=== PATIENT | female | born 1955 | race Caucasian/White ===

== ENCOUNTER 2018-05-30 15:20 | Outpatient (REF) | payer BC, SELFPAY ==
--- NOTE | 2018-05-30 15:00 | PAPFT_PTH ---
PATIENT: Hedy Peterson LOC: [facility] U#:[id number] AGE/SX: 62/F ROOM: RE05/30/[address]: JOHN Baker : 1955 BED: DIS: 05/30/2018 SPEC #: [id number] RECD: 05/30/18 17:55 STATUS: EMEKA REKelly #: [id number] CHALINO: 05/30/18 15:[address]: Brenda Luis DEPT: [facility] Cytology RECD BY: Jazmin Schmitz ENTERED: 05/30/18 17:56 SP TYPE: PAPFT OT DR: Jg Hand MD Tissues: 1 - CX/ENDOCX FOR PAP SMEARS Procedures: PAP THIN PREP/UVM Screening HPV DNA PROBE Comments: [id number]
== END 2018-05-30 15:40 ==
LOC: LBN 15:20
PROVIDERS: PCP Family Medicine; Visit Provider Nurse Practitioner Family
DX: Z12.4 Encounter for screening for malignant neoplasm of cervix (principal); Z11.51 Encounter for screening for human papillomavirus (HPV)
CPT/HCPCS: 88142; 87624

== ENCOUNTER 2018-07-23 02:01 | Outpatient (CLI) | payer BC, SELFPAY ==
--- NOTE | 2018-07-23 11:30 | DI.MAMMO_ITS ---
SYMPTOM/DIAGNOSIS: SCREENING, Z12.31 MAMMOGRAMS: Mammograms were interpreted according to the usual protocol including computer analysis with CAD system, tomosynthesis and C view imaging. Comparison is made with exams from [id number]. The breasts are composed of scattered fibroglandular densities, breast density, Category B. No suspicious masses or suspicious microcalcifications are seen. There has been no significant change. IMPRESSION: Category 1, negative mammogram. Yearly screening mammography is recommended. [facility] ASSESSMENT OF FINDINGS: Negative. Category 1. Patient will receive a letter notifying them of these results. BI-RADS category B. There are scattered areas of fibroglandular density.
== END 2018-07-23 02:21 ==
PROVIDERS: PCP Family Medicine; Visit Provider Nurse Practitioner Family
DX: Z12.31 Encounter for screening mammogram for malignant neoplasm of breast (principal)
CPT/HCPCS: 77063; 77067

== ENCOUNTER 2018-10-14 02:18 | Outpatient (CLI) | payer BC, SELFPAY ==
[2018-10-14 10:02] LABS: HCT 46.8 % (36.0-46.0); HGB 15.7 g/dL (12.0-15.5); Mean Corp. HGB Concentration 33.5 g/dL (32.0-36.0); Mean Corpuscular Hemoglobin 33.4 pg (27.0-33.0); Mean Corpuscular Volume 99.6 fL (80-95); Mean Platelet Volume 9.4 fL (8.0-11.0); Platelet Count 190 x1000/uL (130-400); White Blood Cell Count 4.87 k/cumm (4.4-10.8)
[2018-10-14 10:09] LABS: ALT 30 U/L (12-78); AST 19 U/L (15-37); Albumin 3.7 g/dL (3.4-5.0); Alkaline Phosphatase 79 U/L (46-116); Anion Gap 9.5 mmol/L (3-11); BUN 8 mg/dL (7-18); Bilirubin, Total 0.6 mg/dL (0.2-1.0); CO2 28.5 mmol/L (21.0-32.0); CREATININE 0.64 mg/dL (0.55-1.02); Chloride 107 mmol/L (98-107); Glucose 86 mg/dL (70-100); Potassium 4.1 mmol/L (3.5-5.1); Sodium 145 mmol/L (136-145); Total Protein 6.6 g/dL (6.4-8.2)
== END 2018-10-14 02:38 ==
PROVIDERS: PCP Family Medicine; Visit Provider Family Medicine
DX: I10 Essential (primary) hypertension (principal)
CPT/HCPCS: 36415; 80053; 85027

== ENCOUNTER → 2019-09-05 10:03 | Outpatient (BNVA) | payer MEDICARE, BC, SELFPAY | PROVIDERS: PCP Family Medicine; Referring Provider Family Medicine; Visit Provider Surgery | DX: Z80.0 Family history of malignant neoplasm of digestive organs (principal); Z86.010 Personal history of colon polyps; Z12.11 Encounter for screening for malignant neoplasm of colon ==

== ENCOUNTER 2019-09-19 08:39 | Outpatient (CLI) | payer MEDICARE, BC, SELFPAY ==
[2019-09-20 00:09] LABS: COVID-19 RT-PCR UVMMC Result Negative (Negative)
== END 2019-09-19 08:59 ==
PROVIDERS: PCP Family Medicine; Visit Provider Surgery
DX: Z11.59 Encounter for screening for other viral diseases (principal); Z01.818 Encounter for other preprocedural examination
CPT/HCPCS: U0003

== ENCOUNTER 2019-09-22 07:26 | Day surgery (SDC) | payer MEDICARE, BC, SELFPAY ==
--- NOTE | 2019-09-22 06:06 | W.COLOREPORT ---
Date of service: 09/22/19 Time of Service: 08:46 Colonoscopy Report Date of procedure: 09/22/19 Pre-op diagnosis general: Family history of colon cancer and screening colonoscopy Post-op diagnosis procedure note: same (and polyps, small external hemorrhoid and skin tag) Procedure: Colonoscopy with polypectomy Surgeon: Carlie Galan Anesthesia proc note operative: other (General/ ASA 2/Livia Martines, BREANN ) Estimated blood loss (mL): 5 Pathology: other (Transverse polyp, descending polyp and rectal polyp x3) Complications: None Disposition: same day Indications: Nanci is back to see me today to discuss a screening colonoscopy. Her last colonoscopy was in 2015 and she was found to have a hyperplastic polyp. She also has a family history of colon cancer. She denies any changes in bowel habits, melena, hematochezia, unintentional weight loss or abdominal pain. She continues to have daily bowel movements. She had a knee replacement last year in December and is still slowly getting back to her activity levels. Prep: Miralax/Dulcolax Procedure Start Time: 08:46 Procedure End Time: 09:25 Retraction Time: 31 minutes Findings: 4 small, most likely benign polyps 1 pedunculated polyp, most likely pre-malignant Procedure Description: After informed consent was obtained the patient was taken to the procedure room and placed in a left decubitous position. Monitors were applied and a time out was done. The patients name, date of , procedure, allergies to medications and metal in their body was reviewed. The patient was then sedated. Once sedated and comfortable a rectal exam was done. External exam revealed a skin tag and a small external hemorrhoid. Internal exam revealed a normal sphincter tone and no palpable masses. The scope was then introduced and retro-flexed. No internal hemorrhoids were identified. The scope was then advanced to the cecum without difficulty. The ileocecal valve and appendiceal orifice were identified. The prep was adequate. The scope was then slowly retracted over 31 minutes back into the rectum. Polyps were removed with cold forceps in the transverse colon x1 and the rectum x2. One pedunculated polyp was removed with hot snare in the descending colon. The scope was removed and the patient was woken up and taken back to Same day surgery in stable condition. The patient tolerated the procedure well and there were no immediate complications. Follow up: The patient should follow up in 3-5 years unless they develop changes in bowel habits or other new gastrointestinal complaints.
--- NOTE | 2019-09-22 06:08 | W.PM.DSUDISC ---
Discharge Plan Disposition Patient Disposition: HOME Condition: Good Discharge Details Reason For Visit: Colonoscopy Attending Provider: Carlie Galan Primary Care Provider: Ruddy Merrill Home Meds and New Rx's Prescriptions: Continued atenolol 25 mg tablet 25 mg PO DAILY Qty: 90 RF: 4 paroxetine HCl 20 mg tablet 20 mg PO DAILY Qty: 90 RF: 4 estradiol [Estrace] 0.01 % (0.1 mg/gram) cream 42.5 gm VG AD PRN (Reason: atrophic vaginitis) Qty: 1 RF: 4 budesonide 32 mcg/actuation spray,non-aerosol 2 spray NS PRN RF: 0 Ibuprofen [Motrin Ib] 200 MG tablet 800 mg PO DAILY RF: 0 levothyroxine 75 mcg tablet 75 mcg PO DAILY Qty: 90 RF: 2 atorvastatin 20 mg tablet 20 mg PO DAILY Qty: 90 RF: 4 Discontinued bisacodyl [Dulcolax (bisacodyl)] 5 mg tablet,delayed release (DR/EC) 5 mg PO ONCE Qty: 4 RF: 0 polyethylene glycol 3350 17 gram powder in packet 255 g PO DAILY Qty: 15 RF: 0 Discharge Instructions Instructions: Colorectal Polyps (DC) Additional Instructions: Findings: 4 small most likely benign polyps 1 slightly larger and most likely pre-malignant polyp (all have been removed) Follow up: 3-5 years Please call if you develop: fevers >101.5 Nausea or Vomiting Abdominal pain that is not transient DAY SURGERY UNIT POST ENDOSCOPY INSTRUCTIONS 1. Because there will be medication in your system for the next 24 hours, you may feel a little sleepy. Your coordination will be affected. Therefore: a. Do not drive or operate dangerous equipment for 24 hours. b. Do not drink alcohol beverages for 24 hours (not even beer). c. Plan to go home and rest for the day. 2. Generally there are no restrictions on your activity after a day or so has gone by, but you may feel a bit fatigued for a few days. 3 After you arrive home you may have a light meal and return to a normal diet as you can tolerate it without feeling sick to your stomach. 4. After surgery, you may feel pain or discomfort. This should be only transient, but if it persists please contact your doctor. 5. If there are any questions regarding the findings of your procedure, please feel free to contact your doctor. 6. If you are unable to contact your doctor with a problem, contact the hospital at [phone]. 7. Continue all your regular medications unless directed otherwise. I understand the above instructions and have no questions. Signature of Patient or Responsible Adult Escort Date/Time Name of Responsible Adult Escort Signature of Nurse Date/Time Activity:: Activity as Tolerated Diet:: As Tolerated Discharge Orders Discharge Orders: Discharge Order (Routine); Ordered 09/22/19 Ordered By: Carlie Galan DS: Diagnosis Discharge Diagnosis (1) Colorectal polyps: Status: Acute
[2019-09-22 07:40] VITALS: BP 129/89; PULSE 81; RESP 16; TEMP 36.5; O2SAT 97
[2019-09-22] MEDS: Lactated Ringers 1,000 ML 80 ML IV (08:24)
--- NOTE | 2019-09-22 08:48 | BOWEL_PTH ---
PATIENT: Hedy Peterson LOC: [facility] U#:[id number] AGE/SX: 64/F ROOM: RE09/22/[address]: Carlie Galan MD : 1955 BED: DIS: 09/22/2019 SPEC #: [id number] RECD: 09/22/19 11:13 STATUS: EMEKA REQ #: [id number] CHALINO: 09/22/19 08:[address]: Carlie Galan DEPT: Surgical Specimen RECD BY: Jazmin Schmitz ENTERED: 09/22/19 11:14 SP TYPE: Bowel OTHR DR: Ruddy Merrill MD Tissues: 1 - BIOPSY BOWEL 2 - BIOPSY BOWEL 3 - BIOPSY BOWEL Procedures: GROSS AND MICRO LEVEL 4 Comments: [id number]
[2019-09-22 10:05] VITALS: BP 139/82; PULSE 75; RESP 16; TEMP 36.5; O2SAT 99
== END 2019-09-22 10:35 | disposition home or self-care (01) ==
LOC: SUR 07:26
PROVIDERS: PCP Family Medicine; Visit Provider Surgery
PROC: 0DJD8ZZ Inspection of Lower Intestinal Tract, Via Natural or Artificial Opening Endoscopic (ICD-10-PCS; CPT 45378; principal; 2019-09-22 08:30)
DX: Z12.11 Encounter for screening for malignant neoplasm of colon (principal); Z80.0 Family history of malignant neoplasm of digestive organs; Z87.19 Personal history of other diseases of the digestive system; K64.4 Residual hemorrhoidal skin tags; D12.8 Benign neoplasm of rectum; K63.5 Polyp of colon; K62.1 Rectal polyp; D12.4 Benign neoplasm of descending colon
CPT/HCPCS: 45385; 45380; 88305

== ENCOUNTER 2020-05-07 01:10 | Outpatient (CLI) | payer MEDICARE, BC, SELFPAY ==
[2020-05-07 13:56] LABS: ALT 88 U/L (14-59); AST 88 U/L (15-37); Albumin 3.9 g/dL (3.4-5.0); Alkaline Phosphatase 89 U/L (46-116); Anion Gap 12.8 mmol/L (3-11); BUN 4 mg/dL (7-18); Bilirubin, Total 0.6 mg/dL (0.2-1.0); CO2 28.2 mmol/L (21.0-32.0); CREATININE 0.6 mg/dL (0.55-1.02); Calcium 9.2 mg/dL (8.5-10.1); Calculated LDL 31 mg/dL (<100); Chloride 107 mmol/L (98-107); Cholesterol 159 mg/dL (<200); Glucose 80 mg/dL (74-106); HDL Cholesterol 101 mg/dL (40-60); Potassium 3.8 mmol/L (3.5-5.1); Sodium 148 mmol/L (136-145); TSH 1.97 uIU/mL (0.36-3.74); Total Protein 7.1 g/dL (6.4-8.2); Triglyceride 139 mg/dL (<150)
== END 2020-05-07 01:11 | disposition home or self-care (01) ==
LOC: LOS 01:10
PROVIDERS: PCP Family Medicine
DX: E78.5 Hyperlipidemia, unspecified (principal); I10 Essential (primary) hypertension; E03.9 Hypothyroidism, unspecified
CPT/HCPCS: 36415; 80053; 80061; 84443

== ENCOUNTER 2020-08-05 11:03 | Outpatient (REF) | payer MEDICARE, BC, SELFPAY ==
--- NOTE | 2020-08-05 10:00 | PAPFT_PTH ---
PATIENT: Hedy Peterson LOC: [facility] U#:[id number] AGE/SX: 65/F ROOM: RE08/05/[address]: JOHN Baker : 1955 BED: DIS: 08/05/2020 SPEC #: [id number] RECD: 08/05/20 12:37 STATUS: EMEKA REQ #: [id number] CHALINO: 08/05/20 10:[address]: Brenda Luis DEPT: [facility] Cytology RECD BY: Jazmin Schmitz ENTERED: 08/05/20 12:37 SP TYPE: PAPFT OTHR DR: Ruddy Merrill MD Tissues: 1 - CX/ENDOCX FOR PAP SMEARS Procedures: PAP THIN PREP/UVM Screening HPV DNA PROBE Comments: [id number]
== END 2020-08-05 11:04 | disposition home or self-care (01) ==
LOC: LBN 11:03
PROVIDERS: PCP Family Medicine; Visit Provider Nurse Practitioner Family
DX: Z12.4 Encounter for screening for malignant neoplasm of cervix (principal); Z11.51 Encounter for screening for human papillomavirus (HPV)
CPT/HCPCS: 88142; 87624

== ENCOUNTER 2020-08-09 01:30 | Outpatient (CLI) | payer MEDICARE, BC, SELFPAY ==
--- NOTE | 2020-08-09 10:00 | DI.MAMMO_ITS ---
Exam(s) MAMMO SCREENING EXAM: MAMMO SCREENING CLINICAL HISTORY: screening. TECHNIQUE: Bilateral full field digital CC and MLO mammographic images were obtained with 3D tomosyn thesis and utilizing computer aided detection (CAD). COMPARISON: Prior mammograms dating back to 2011, the most recent being May 2017. FINDINGS: In the medial aspect left breast there is a small microcalcification group which is unchanged from al l prior studies. Small benign-appearing asymmetric density laterally in the opposite-right breast is also unchanged. There are no new spiculated masses nor malignant appearing microcalcification groups. There is no significant architectural distortion nor skin thickening-retraction. IMPRESSION: Stable benign findings. No radiographic evidence of malignancy. BI-RADS Category 2 - Benign Findings Breast Density - Category B - Scattered areas of fibroglandular density Breast density Category C or D implies that the patient has dense breast tissue. Dense breast tissue can make it harder to find cancer on a mammogram. Dense breast tissue is also associated with an incr eased risk of breast cancer. This information about the result of the mammogram report was provided to the patient to raise their awareness. Use this report when you speak with the patient about their risks for breast cancer, which includes their family history. At that time, you may recommend additional screening tests (Ultrasoun d or MRI) as these tests may add significant information. A negative radiographic report should not delay biopsy if a dominant or clinically suspicious mass is present. Up to ten percent of cancers are not identified on mammography. A negative report may reinforce clinical impression. Adenosis and dense breasts may obscure an underlying neoplasm. False positive reports average 6 to 10%. Patient will receive a letter notifying them of these results.
== END 2020-08-09 01:50 ==
PROVIDERS: PCP Family Medicine; Visit Provider Nurse Practitioner Family
DX: Z12.31 Encounter for screening mammogram for malignant neoplasm of breast (principal)
CPT/HCPCS: 77063; 77067

== ENCOUNTER 2020-09-10 06:16 | Day surgery (SDC) | payer MEDICARE, BC, SELFPAY ==
[2020-09-10 06:38] VITALS: BP 120/79; PULSE 77; RESP 18; TEMP 37; O2SAT 97
--- NOTE | 2020-09-10 06:40 | ANES.PREOP_ITS ---
General Info Date of Service Date Performed: 09/10/20 Height: 5 ft 1.75 in Weight: 68.549 kg Body Mass Index (BMI): 27.8 Surgical Procedure: Operation Date: 09/10/20 07:40 Proposed Procedures Side Surgeon p EXOSECTOMY RT FOOT Right Guanako Stella Pierce DPM Meds Allergies and Home Medications Allergies Allergy/AdvReac Type Severity Reaction Status Date / Time trazodone AdvReac Unknown Verified 09/08/20 12:02 Home Medication Medication Instructions Recorded budesonide 32 mcg/actuation nasal 2 spray NS PRN ml 11/08/18 spray atenolol 25 mg tablet 25 mg PO DAILY #90 tab-cap 04/20/20 atorvastatin 20 mg tablet 20 mg PO DAILY #90 tab 04/20/20 estradiol 1 g VG AD PRN #42.5 g 04/20/20 levothyroxine 75 mcg tablet 75 mcg PO DAILY #90 tab-cap 04/20/20 paroxetine HCl 20 mg tablet 20 mg PO DAILY #90 tab-cap 04/20/20 Current Visit Medications: Current Medications Generic Name Dose Route Start Last Admin Trade Name Freq PRN Reason Stop Dose Admin Sodium Chloride 500 mls @ 0 mls/hr 09/10/20 06:00 Saline 500ml Bag IV PRN PRN As Directed Cefazolin Sodium/Dextrose 1 gm in 50 mls @ 100 mls/hr 09/10/20 06:00 Ancef Duplex IVPB PREOP PAT Ringer's Solution 1,000 mls @ 80 mls/hr 09/10/20 06:00 IV 10/09/20 23:59 INFUSION PAT IV Miscellaneous Supplies 1 each 09/10/20 06:00 Iv Access IV DIRECTED PAT IV Miscellaneous Supplies 1 each 09/10/20 06:00 Iv Access IV 10/09/20 23:59 DIRECTED PAT Povidone Iodine 0 ml 09/10/20 06:00 Povidone-Iodine Soln. 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 Tubular adenoma of colon D12.6 Hyperplastic colon polyp K63.5 Colorectal polyps K63.5 Medical History Medical History Alcohol use disorder Atrophic vaginitis Depressive disorder Essential hypertension Hyperlipidemia Hypothyroidism Impacted cerumen of left ear Mild heartburn Viral URI Surgical History Surgical History History of bunionectomy of both great toes (~2004) S/P colonoscopy (09/22/19) 2016- hyperplastic polyp S/P left knee arthroscopy (~2010) S/P right knee arthroscopy Status post left foot surgery (~01/2017) For plantar fasciitis Status post total left knee replacement Tobacco Smoking/Tobacco Use Status: Never Alcohol Alcohol Intake: current Alcohol intake frequency: 0-2 drinks per day Alcohol type: wine Substance Use Substance use: Never Substance use type: does not use Prental History History 1 Para 1 Hx # Term Pregnancies Multiple births Hx # Pregnancies Ectopic pregnancies AB induced Hx Number of Living Children 1 AB spontaneous Vital Signs and Lab Results Lab Results Blood Type / Crossmatch: No Data to Display Complete Blood Count: No Data to Display Complete Metabolic Panel: No Data to Display Liver Function Panel: No Data to Display Coagulation Panel: No Data to Display Cardiac Panel: No Data to Display Arterial Blood Gas: No Data to Display Venous Blood Gas: No Data to Display Pancreas Panel: No Data to Display Thyroid Panel: No Data to Display Infectious Disease: No Data to Display Blood Cultures: No Data to Display Toxicology Panel: No Data to Display Anesthesia Assessment and Plan Anesthesia History Personal History: No History of Anesthesia Complications Family History: No Family History of Anesthesia Complications Exercise Tolerance Exercise Tolerance: Metabolic Equivalents>4 Pertinent Negatives Pertinent Negatives: No Symptoms of GERD, No Major Cardiovascular Symptoms or Complaints (HTN (on atenolol took 09/10 am) , HLD), No Major Pulmonary Symptoms or Complaints (+snores ), No History of CVA/TIA and Other (ETOH abuse, hypothyro idism ) Cardiac & Pulmonary Exam Cardiac Exam: Normal S1/S2 Heart Sounds Pulmonary Exam: Clear Bilateral Breath Sounds Airway Exam Known Difficult Airway: No Mallampati Class: 3 Mouth Opening: Normal (> 3cm) Thyromental Distance: Greater than 3 cm Neck Range of Motion: Full ROM Neck Circumference: Normal Teeth Condition: Normal Dentition ASA Classification ASA Score: ASA 2 Emergency Case?: No NPO Status NPO Status: NPO Clears >2 hours, Solids >8 hours Anesthesia Plan Resuscitation Status: Full Code Anesthesia Technique: General Anesthesia Airway Planned: Natural Airway Monitors Used: Standard Monitors
--- NOTE | 2020-09-10 06:55 | W.PM.HP.N ---
Date of service: 09/10/20 Time of Service: 06:55 History of Present Illness History of Present Illness Chief Complaint: Right midfoot pain, exostosis Narrative: 65-year-old female with increasing pain and disability associated with degenerative arthrosis of the right midfoot. A large dorsal exostosis is appreciated which is directly contributing to her pain and disability interfering with shoe gear, weightbearing and ambulation. [facility] Medical History Alcohol use disorder Atrophic vaginitis Depressive disorder Essential hypertension Hyperlipidemia Hypothyroidism Impacted cerumen of left ear Mild heartburn Viral URI Surgical History History of bunionectomy of both great toes (~2004) S/P colonoscopy (09/22/19) 2016- hyperplastic polyp S/P left knee arthroscopy (~2010) S/P right knee arthroscopy Status post left foot surgery (~01/2017) For plantar fasciitis Status post total left knee replacement Family History Mother , at 93 of CHF Heart disease Breast cancer Hypertension Father , at 57 of colon cancer Colon cancer Dx at 56 Pancreatic cancer Sister Breast cancer Brother , of [place] at 69 Heart disease Myocardial infarction Daughter No problems noted. Maternal Grandfather No problems noted. Maternal Grandmother No problems noted. Paternal Grandfather No problems noted. Paternal Grandmother No problems noted. Social History Smoking/Tobacco Use Status: Never Smoking risk assessment performed?: Yes Alcohol Intake: current Alcohol Intake frequency: 0-2 drinks per day Alcohol type: wine Drug use: Never Substance use type: does not use Caregiver/Support person: No Household members: spouse Housing: house Communication Needs: None Do you need help understanding health information?: Never Pets and animals: Yes Pets and animals: dog(s) Do you think of yourself as: straight/heterosexual Current gender identity: female What is your relationship status?: How often do you talk on the phone with friends or family?: decline to answer How often do you get together with friends or relatives?: decline to answer How often do you attend sabianist or jewish services?: decline to answer Do you belong to any clubs or organized social groups?: decline to answer Panel score (0-1 are the most socially isolated patients): 1 What type of physical activity do you participate in: none Lissett/Faith: Zoroastrianism Special lissett needs: No Seatbelt use: always Drive intox or ride w/intox cryogenic transport driver: No Do you feel safe at home: Yes Do you feel safe in your relationship?: Yes Victim of physical abuse: No Victim of emotional abuse: No Victim of sexual abuse: No Female Reproductive History Menstrual Menopause type: natural History History 1 Para 1 Hx # Term Pregnancies Multiple births Hx # Pregnancies Ectopic pregnancies AB induced Hx Number of Living Children 1 AB spontaneous Meds Allergies and Home Medications Allergies Allergy/AdvReac Type Severity Reaction Status Date / Time trazodone AdvReac Unknown Verified 09/08/20 12:02 Home Medications Medication Instructions Recorded Confirmed Type budesonide 32 mcg/actuation nasal 2 spray NS PRN ml 11/08/18 09/10/20 History spray atenolol 25 mg tablet 25 mg PO DAILY #90 tab-cap 04/20/20 09/10/20 Rx atorvastatin 20 mg tablet 20 mg PO DAILY #90 tab 04/20/20 09/10/20 Rx estradiol 1 g VG AD PRN #42.5 g 04/20/20 09/10/20 Rx levothyroxine 75 mcg tablet 75 mcg PO DAILY #90 tab-cap 04/20/20 09/10/20 Rx paroxetine HCl 20 mg tablet 20 mg PO DAILY #90 tab-cap 04/20/20 09/10/20 Rx Exam Narrative Exam Narrative: 65-year-old pleasant female looking her stated age in no acute distress Head is normocephalic Eyes PERRLA Hearing is sufficient Uvular is midline airway looks assessable Heart had regular rate rhythm I detected no gallops rubs or murmurs Lung steward were clear Abdomen was soft nontender bowel sounds x4 Peripheral pulses are manually palpable at the ankles minus 2 out of 4, CFT under 3 seconds no edema Muscle groups 5 out of 5 bilaterally Skeletal exam is remarkable for a large midtarsal dorsal exostosis of the right midfoot primarily off the second metatarsal cuneiform joint with lateral extension to the third met. Tenderness to direct palpation is appreciated. Neurologically grossly intact Impressions: Right midtarsal dorsal exostosis formation Plan: Karissa's been brought to the OR for surgical resection of the right midtarsal dorsal exostosis. She understands potential risks and complications pertaining to pain, scarring, infection, nerve injury, ongoing discomfort associated with the degenerative arthritis of the affected joint across the midfoot potentially requiring additional surgeries. All questions have been answered in detail. No promises made to final outcome of the surgery. Results Last Vital Signs Temp 37.0 C 09/10/20 06:38 Pulse 77 09/10/20 06:38 Resp 18 09/10/20 06:38 BP 120/79 09/10/20 06:38 Pulse Ox 97 09/10/20 06:38 COVID-19 Screening Have you, or household traveled for leisure in last 14 days?: No Had IN PERSON contact w/suspected or confirmed C-19 person: No
--- NOTE | 2020-09-10 07:01 | W.PM.DSUDISC ---
Discharge Plan Disposition Patient Disposition: HOME Condition: Good Discharge Details Reason For Visit: Resection right midfoot exostosis Attending Provider: Guanako Pierce Primary Care Provider: Yolande Mckinley Home Meds and New Rx's Prescriptions: New hydrocodone-acetaminophen 5-325 mg tablet 1 tab PO Q6H PRN (Reason: post op pain) Qty: 9 RF: 0 Continued budesonide 32 mcg/actuation spray,non-aerosol 2 spray NS PRN RF: 0 atenolol 25 mg tablet 25 mg PO DAILY Qty: 90 RF: 4 atorvastatin 20 mg tablet 20 mg PO DAILY Qty: 90 RF: 4 levothyroxine 75 mcg tablet 75 mcg PO DAILY Qty: 90 RF: 3 paroxetine HCl 20 mg tablet 20 mg PO DAILY Qty: 90 RF: 4 estradiol [Estrace] 0.01 % (0.1 mg/gram) cream 1 g VG AD PRN (Reason: atrophic vaginitis) Qty: 42.5 RF: 4 Discharge Instructions Activity:: Elevate Remove Dressings/Wound Care:: Do Not Remove Shower/Bathe:: Cover Diet:: Normal Diet DS: Diagnosis Discharge Diagnosis (1) Exostosis of right foot: Status: Acute (2) Pain in right foot: Status: Acute
[2020-09-10 07:05] VITALS: BMI 27.8
[2020-09-10] MEDS: Lactated Ringers 1,000 ML 80 ML IV (07:11)
[2020-09-10] MEDS: ceFAZolin 1 GM/50 ML BAG IVPB (07:33)
[2020-09-10] MEDS: Lidocaine 1% Multi-Dose 50 ML VIAL (07:40)
[2020-09-10] MEDS: Bupivacaine 0.5% Pres-Free 30 ML VIAL (07:40)
[2020-09-10] MEDS: Dexamethasone 4 MG/ML VIAL (08:25)
--- NOTE | 2020-09-10 08:49 | W.ANESPOSTOP ---
Postoperative Evaluation Date, Time and Location Date Performed: 09/10/20 Time Performed: 08:49 Patient Location: Day Surgery Unit Vital Signs Most Recent Imported Vital Signs: Most Recent Vital Signs Temp Pulse Resp BP Pulse Ox 37.0 C 77 18 120/79 97 09/10/20 06:38 09/10/20 06:38 09/10/20 06:38 09/10/20 06:38 09/10/20 06:38 Most Recent Manually Entered Vital Signs: Adult Blood Pressure: 131/92 Heart Rate: 71 Respirations: 18 Oxygen Saturation (%): 98 Temperature (C): 36 C Pain Score (0-10 Scale): 0 Pain Score Most Recent Pain Score: Most Recent Pain Score Pain Level 0 09/10/20 06:38 Assessment Mental Status: Awake (Alert & Oriented to Patient Baseline) Airway and Respiratory Function: Patent airway with normal (patient baseline) respiratory exam Cardiovascular Function: Hemodynamically Stable Hydration Status: Adequately Hydrated Nausea & Vomiting: No Nausea or Vomiting Pain: Pt. Denies Any Pain Peripheral Nerve Block: Regional nerve block not resolved at time of post operative discharge
--- NOTE | 2020-09-10 08:49 | W.PM.OP ---
Date of service: 09/10/20 Time of Service: 08:49 Operative Note Operative Note Refer to Anesthesia Record Preoperative diagnosis: Symptomatic right midtarsal dorsal exostosis Osteoarthrosis of the right midfoot Postoperative diagnosis same Procedure note: Yoon was brought to the operative suite placed in the supine position with the right foot was prepped and draped in the usual sterile podiatric fashion. Anesthesia provided a right ankle block consisting of 18 cc 50: 50 mixture 1% lidocaine plain, 0.5% Marcaine plain. Timeout was performed per protocol for safe surgery. Attention was directed to the right foot which was exsanguinated and a well padded ankle tourniquet inflated to 250 mmHg. Attention was directed to the large bump coming off the second metatarsal cuneiform joint region. The incision was placed slightly lateral to this area so as to avoid deep peroneal nerve and dorsalis pedis arteries. The incision was deepened in controlled depth fashion with hemostasis acquired with electrocautery as needed. Vital structures in the subcutaneous layer and deep were retracted medially and laterally. Dissection was carried down to the periosteum which was incised longitudinally. The periosteum was lifted and a large exostosis noted over the second metatarsal cuneiform joint. With osteotome and mallet the exostosis was resected in 3 pieces. Hand rasping was then used to saucerize the region directly over the joint. All rough and bony edges were rasped smooth. Visual inspection of the second metatarsocuneiform joint revealed degenerative changes within the joint surfaces themselves. Copious irrigation was performed. Good reduction of the exostosis was appreciated manually. The periosteum was repaired with simple interrupted suture 3-0 Vicryl. The subcutaneous layer repaired with 3-0 Vicryl. The subcuticular layer was brought together with several 4-0 Vicryl suture and then the skin line was coapted with continuous running 4-0 Monocryl subcuticularly. 4 mg of dexamethasone phosphate was infused deeply within the wound. Mastisol applied to the incision followed by half-inch Steri-Strips followed by Xeroform. Fluff Kerlix gauze dressings applied. Tourniquet was released to 44 minutes with vascularity returning immediately to all toes. Nanci left the OR with vital signs stable vascular status intact sharp and sponge counts were correct. Should be followed by myself in the office next week.
[2020-09-10 08:50] VITALS: BP 130/92; PULSE 74; RESP 17; TEMP 36; O2SAT 98
[2020-09-10 08:51] VITALS: BP 131/92; PULSE 71; RESP 18; TEMPC 36; O2SAT 98
[2020-09-10 09:20] VITALS: BP 115/73; PULSE 71; RESP 16; TEMP 36.2; O2SAT 97
== END 2020-09-10 10:17 | disposition home or self-care (01) ==
PROVIDERS: Visit Provider Podiatrist
PROC: (CPT 28288; principal; 2020-09-10 07:30)
DX: M25.774 Osteophyte, right foot (principal); M19.071 Primary osteoarthritis, right ankle and foot; M89.8X7 Other specified disorders of bone, ankle and foot; M79.671 Pain in right foot; I10 Essential (primary) hypertension; E78.5 Hyperlipidemia, unspecified; F10.10 Alcohol abuse, uncomplicated
CPT/HCPCS: 28104; J0690; J1100; J1885; J2001; J2250; J2405

== ENCOUNTER 2021-05-10 01:03 | Outpatient (CLI) | payer MEDICARE, SELFPAY ==
--- NOTE | 2021-05-10 08:20 | DI.DEXA_ITS ---
Exam(s) XR DEXA BONE DENSITY W/WO JOVANNA EXAM: XR DEXA BONE DENSITY W/WO JOVANNA CLINICAL HISTORY: SCREENING FOR OSTEOPOROSIS IN POSTMENOPAUSAL WOMAN,Z78.0 TECHNIQUE: Routine DEXA evaluation of the lumbar spine, hip, or forearm. COMPARISON: No exams were available for comparison FINDINGS: Performed on a Hologic unit. Lateral image: No compression fracture evident. Lumbar Spine total T-score: -3.4 Hip total T-score:-2.6 Independent reading at the level of the femoral neck yields at T-score of -2.7. Forearm total T-score: -3.8 IMPRESSION: Bone mineral density measures in the osteoporosis range. Fracture risk is high. Note: Any spine fracture indicates 5x risk for subsequent spine fracture and 2x risk for subsequent h ip fracture. World Health Organization criteria for BMD interpretation classify patients: Normal...... T- Score at or above -1.0 Osteopenic... T- Score between -1.0 and -2.5 Osteoporosis... T-Score at or below -2.5
== END 2021-05-10 01:23 ==
PROVIDERS: PCP Family Medicine; Visit Provider Family Medicine
DX: M81.0 Age-related osteoporosis without current pathological fracture (principal); Z78.0 Asymptomatic menopausal state
CPT/HCPCS: 77080

== ENCOUNTER 2021-05-16 10:44 | Emergency (ER) | payer MEDICARE, SELFPAY ==
[2021-05-16 10:59] VITALS: BP 139/93; PULSE 90; RESP 18; TEMP 36.7; O2SAT 97
[2021-05-16] MEDS: Ibuprofen 400 MG TAB PO (11:58)
[2021-05-16] MEDS: Cyclobenzaprine 10 MG TAB PO (11:58)
[2021-05-16] MEDS: predniSONE 20 MG TAB 40 MG PO (11:59)
[2021-05-16] MEDS: Lidocaine 5% Patch 1 PATCH TP (11:59)
--- NOTE | 2021-05-16 14:31 | ED.GENADUL_ITS ---
Discharge Plan Disposition Patient Disposition: HOME Condition: Stable Discharge Details Clinical Impression: Back pain Primary Care Provider: Roderick Granda ED Provider: Petrona Maher Home Meds and New Rx's Prescriptions: New prednisone 20 mg tablet 40 mg PO DAILY Qty: 8 0RF Rx Instructions: Please begin taking 2/ cyclobenzaprine 5 mg tablet 5 mg PO BID PRN (Reason: muscle spasm) Qty: 10 0RF lidocaine [Lidoderm] 5 % adhesive patch,medicated 1 patch topical DAILY Qty: 15 0RF Rx Instructions: leave on most painful area for up to 12 hrs, no more than 1 patch per 24 period. Continued budesonide 32 mcg/actuation spray,non-aerosol 2 spray NS PRN 0RF omeprazole 20 mg capsule,delayed release(DR/EC) 20 mg PO DAILY Qty: 90 3RF atenolol 25 mg tablet 25 mg PO DAILY Qty: 90 3RF atorvastatin 20 mg tablet 20 mg PO DAILY Qty: 90 3RF paroxetine HCl 20 mg tablet 20 mg PO DAILY Qty: 90 3RF levothyroxine 75 mcg tablet 75 mcg PO DAILY Qty: 90 3RF estradiol [Estrace] 0.01 % (0.1 mg/gram) cream 1 g VG AD PRN (Reason: atrophic vaginitis) Qty: 42.5 4RF Rx Instructions: Insert 1G in the vagina at night 2 x per week as needed Discharge Instructions Instructions: Ibuprofen (By mouth), Prednisone (By mouth), Cyclobenzaprine (By mouth), Lidocaine Patch (On the skin), Sciatica (ED), Back Pain (ED) Additional Instructions: Please return immediately to the emergency department if you develop any new or worsening symptoms, if your condition does not improve as expected, or if you become otherwise concerned. It is extremely important that you call soon as possible to make an appointment to be seen in follow-up for this visit by your primary care doctor and physical therapy. Stand Alone Forms: Physical Therapy Referral Referrals: Roderick Granda MD [Primary Care Provider] - Justin Celaya PT [PHYSICAL THERAPIST] - Discharge Data Discharge Date/Time-TO BE ENTERED AT DEPARTURE: 05/16/21 12:06 Medical Decision Making Hedy Peterson is a 65 y/o woman with h/o alcohol use disroder, hypo thyroidism, depression presenting to the emergency department with back pain. Pt reports that 4 days ago she was moving heavy furniture when she began to develop pain in her lower back, worse on the left, radiating into left buttock. Pt reports that pain has been on-going. She states that she is able to walk without issue, but has difficulty getting into position of comfort. Prolonged sitting, standing and lying down all become uncomfortable. She denies any other pain, fever, SOB, cough, vomiting, diarrhea, numbness including saddle anesthesia, weakness, urinary hesitancy/retention/other changes, constipation/other bowel changes. Has been eating and drinking as usual. Exam shows Pt well and non-toxic appearing, left lumbar paraspinal and buttock TTP that reproduces pain. Normal exam of the hips. B/l LEs neurovascularly intact. Concern for sciatica, lumbar strain, other. Exam/hx at this time is not c/w with acute emergent bony pathology of the spine, cauda equina syndrome, epidural abscess, epidural hematoma, other cord compression, sepsis, acute aortic pathology. Plan for prednisone, flexeril, NSAIDs, lidoderm patch, outpt f/u. I had a discussion with Patient regarding return to emergency department precautions, home care, and importance of outpatient follow-up. Pt verbalizes understanding of the plan and is amenable. Patient discharged to home with clear plan for outpatient follow-up. All questions were answered. Disposition decision was made weighing the risks and benefits of hospitalization versus outpatient treatment, the risk for further decompensation, and the pat ient's wishes. HPI General Date/Time Provider Initiated Documentation: 05/16/21 10:59 . Limitations to Documentation: no limitations . Information obtained by: patient, RN notes reviewed and old records reviewed . HPI Narrative: Hedy Peterson is a 65 y/o woman with h/o alcohol use disroder, hypothyroidism, depression presenting to the emergency department with back pain. Pt reports that 4 days ago she was moving heavy furniture when she began to develop pain in her lower back, worse on the left, radiating into left buttock. Pt reports that pain has been on-going. She states that she is able to walk without issue, but has difficulty getting into position of comfort. Prolonged sitting, standing and lying down all become uncomfortable. She denies any other pain, fever, SOB, cough, vomiting, diarrhea, numbness including saddle anesthesia, weakness, urinary hesitancy/retention/other changes, constipation/other bowel changes. Has been eating and drinking as usual. Related Data Home Medications Medication Instructions Recorded Confirmed budesonide 32 mcg/actuation nasal 2 spray NS PRN ml 11/08/18 05/16/21 spray atenolol 25 mg tablet 25 mg PO DAILY #90 tab-cap 22 05/16/21 atorvastatin 20 mg tablet 20 mg PO DAILY #90 tab 04/22/21 05/16/21 estradiol (Estrace) 1 g VG AD PRN #42.5 g 04/22/21 05/16/21 levothyroxine 75 mcg tablet 75 mcg PO DAILY #90 tab-cap 22 05/16/21 omeprazole 20 mg capsule,delayed 20 mg PO DAILY #90 cap 22 05/16/21 release paroxetine HCl 20 mg tablet 20 mg PO DAILY #90 tab-cap 22 05/16/21 cyclobenzaprine 5 mg tablet 5 mg PO BID PRN #10 tab 05/16/21 lidocaine 5 % topical patch 1 patch TOPICAL DAILY #15 ea 05/16/21 (Lidoderm) prednisone 20 mg tablet 40 mg PO DAILY #8 tab 05/16/21 Previous Rx's Medication Instructions Recorded atenolol 25 mg tablet 25 mg PO DAILY #90 tab-cap 04/22/21 atorvastatin 20 mg tablet 20 mg PO DAILY #90 tab 04/22/21 estradiol (Estrace) 1 g VG AD PRN #42.5 g 04/22/21 levothyroxine 75 mcg tablet 75 mcg PO DAILY #90 tab-cap 04/22/21 omeprazole 20 mg capsule,delayed 20 mg PO DAILY #90 cap 04/22/21 release paroxetine HCl 20 mg tablet 20 mg PO DAILY #90 tab-cap 04/22/21 cyclobenzaprine 5 mg tablet 5 mg PO BID PRN #10 tab 05/16/21 lidocaine 5 % topical patch 1 patch TOPICAL DAILY #15 ea 05/16/21 (Lidoderm) prednisone 20 mg tablet 40 mg PO DAILY #8 tab 05/16/21 Allergies Allergy/AdvReac Type Severity Reaction Status Date / Time trazodone AdvReac Unknown Verified 05/16/21 11:05 General Stated Complaint: Nk/Back Pain MIGUEL: 3 Review of Systems Narrative: Constitutional: denies fevers Eyes: denies eye pain ENT: denies ear pain, dental pain, sore throat Cardiovascular: denies chest pain, edema Respiratory: denies SOB, cough GI: denies abdominal pain, vomiting, diarrhea : denies flank pain MSK: denies neck pain, arthralgias, myalgias, reports back pain as per HPI Skin: denies rash Neuro: denies headaches, numbness, weakness PFSH All Active Problems (Updated 05/16/21 @ 12:01 by Petrona Maher MD) Back pain (Acute) Osteoporosis (Chronic) 05/2021-positive DEXA scan GERD (gastroesophageal reflux disease) (Chronic) Hypothyroid (Chronic) Hyperlipidemia (Acute) Essential hypertension (Acute) Tubular adenoma of colon (Acute) 2019, also family history of father with colon cancer-due for colonoscopy 2022 Medical History (Updated 05/16/21 @ 12:01 by Petrona Maher MD) Alcohol use disorder Atrophic vaginitis Depressive disorder Hypothyroidism Viral URI Surgical History History of bunionectomy of both great toes (~2004) S/P colonoscopy (09/22/19) 2016- hyperplastic polyp S/P left knee arthroscopy (~2010) S/P right knee arthroscopy Status post left foot surgery (~01/2017) For plantar fasciitis Status post total left knee replacement Family History Mother , at 93 of CHF Heart disease Breast cancer Hypertension Father , at 57 of colon cancer Colon cancer Dx at 56 Pancreatic cancer Sister Breast cancer Brother , of [place] at 69 Heart disease Myocardial infarction Daughter No problems noted. Maternal Grandfather No problems noted. Maternal Grandmother No problems noted. Paternal Grandfather No problems noted. Paternal Grandmother No problems noted. Social History Smoking/Tobacco Use Status: Never Second Hand Exposure: No Smoking risk assessment performed?: Yes Alcohol Intake: current Alcohol Intake frequency: 0-2 drinks per day Alcohol type: wine Drug use: Never Substance use type: does not use Caregiver/Support person: No Household members: spouse Housing: house Communication Needs: None Pets and animals: Yes Pets and animals: dog(s) Do you think of yourself as: straight/heterosexual Current gender identity: female What is your relationship status?: How often do you talk on the phone with friends or family?: three or more times per week Panel score (0-1 are the most socially isolated patients): 2 Duration: 30-45 minutes/day Lissett/Anglican: Catholic Seatbelt use: always Drive intox or ride w/intox light truck driver: No Do you feel safe at home: Yes Do you feel safe in your relationship?: Yes Victim of physical abuse: No Victim of emotional abuse: No Victim of sexual abuse: No Female Reproductive History Menstrual Menopause type: natural History History 1 Para 1 Hx # Term Pregnancies Multiple births Hx # Pregnancies Ectopic pregnancies AB induced Hx Number of Living Children 1 AB spontaneous Exam Narrative Exam Narrative: Constitutional: well and [id number], pleasant, conversing normally HENT: head atraumatic/normocephalic/normal inspection, mucous membranes moist Eyes: conjunctiva normal, sclera normal, pupils 3mm b/l Neck: no stridor, normal ROM, trachea midline Resp: normal work of breathing, speaking in full sentences Cardio: normal rate, normal rhythm GI: abdomen soft, non-tender, non-distended Back: normal inspection, no rash, no lumbar spine TTP, left lumbar paraspinal and buttock TTP that reproduces pain, no hip TTP Skin: warm, dry, normal color, no rash Neuro: alert, not altered, grossly non-focal, motor 5/5 throughout b/l LEs, sensation intact and symmetric saddle region and b/l LEs, normal tone, normal gait Ext: no edema, ranging b/l hips without issue, b/l LEs warm and well perfused Psych: normal mood, normal affect, normal behavior Course Vital Signs Vital signs: Vital Signs Temperature 36.7 C 05/16/21 10:59 Pulse 90 05/16/21 10:59 Respiratory Rate 18 05/16/21 10:59 Blood Pressure 139/93 H 05/16/21 10:59 Pulse Oximetry 97 05/16/21 10:59 Temperature 36.7 C 05/16/21 10:59 Temperature Source Tympanic 05/16/21 10:59 Pulse 90 05/16/21 10:59 Respiratory Rate 18 05/16/21 10:59 Respiratory Effort Non-Labored 05/16/21 11:03 Blood Pressure 139/93 H 05/16/21 10:59 Blood Pressure Position Sitting 05/16/21 10:59 Pulse Oximetry 97 05/16/21 10:59 Oxygen Delivery Method Room Air 05/16/21 10:59 Oxygen Flow Rate 0 05/16/21 10:59 Pain Level 9 05/16/21 12:07 PAWSS Have you Been Recently Intoxicated or Drunk Within the Last 30 days?: No Have you Ever Experienced Previous Episodes of Alcohol Withdrawal?: No Have you ever Experienced Withdrawal Seizures?: No Have you ever Experienced Delirium Tremens(DT)s?: No Have you ever undergone Alcohol Rehabilitation Treatment (i.e, inpt ot outpatient treatment programs)?: No Have you ever Experienced Blackouts?: No Have you ever Combined Alcohol with other Downers within the last 90 days?: No Have you ever Combined Alcohol with any other Substance of Abuse during the last 90 days?: No Positive Blood Alcohol level on Presentation? [PCS.BAL]: No Evidence of Increased Autonomic Activity (i.e. HR>120, tremor, sweating, agitation, nausea)?: No Result: 0
== END 2021-05-16 12:06 | disposition home or self-care (01) ==
PROVIDERS: Emergency Provider Student in an Organized Health Care Education/Training Program; PCP Family Medicine
DX: M54.50 Low back pain, unspecified (principal); X50.0XXA Overexertion from strenuous movement or load, initial encounter
CPT/HCPCS: 99283; J7512

== ENCOUNTER 2021-05-17 02:24 | Outpatient (CLI) | payer MEDICARE, SELFPAY | END 2021-05-17 02:25 | disposition home or self-care (01) | LOC: LBO 02:24 | PROVIDERS: PCP Family Medicine; Visit Provider Family Medicine ==

== ENCOUNTER 2021-05-23 19:44 | Outpatient (REF) | payer MEDICARE, SELFPAY ==
[2021-05-25 12:43] LABS: COVID-19 RT-PCR UVMMC Result Negative (Negative)
== END 2021-05-23 19:45 | disposition home or self-care (01) ==
LOC: LBN 19:44
PROVIDERS: PCP Family Medicine; Visit Provider Family Medicine
DX: J32.9 Chronic sinusitis, unspecified (principal); Z20.822 Contact with and (suspected) exposure to COVID-19
CPT/HCPCS: U0003

== ENCOUNTER 2021-05-25 01:42 | Outpatient (CLI) | payer MEDICARE, SELFPAY ==
[2021-05-25 08:59] LABS: HCT 44.9 % (36.0-46.0); HGB 14.9 g/dL (11.2-15.7); MCH 32.6 pg (27.0-33.0); MCHC 33.2 % (32.0-36.0); MCV 98.2 fL (80-95); MPV 8.6 fL (8.0-11.0); Platelet Count 136 10^3/uL (130-400); RBC 4.57 10^6/uL (3.93-5.22); RDW 13.1 % (11.7-14.6); RDW-SD 47.4 fL; WBC 4.84 10^3/uL (4.4-10.8)
[2021-05-25 10:19] LABS: ALT 77 U/L (14-59); AST 72 U/L (15-37); Albumin 3.6 g/dL (3.4-5.0); Alkaline Phosphatase 105 U/L (46-116); Anion Gap 12.8 mmol/L (3-11); BUN 5 mg/dL (7-18); Bilirubin, Total 0.6 mg/dL (0.2-1.0); CO2 25.2 mmol/L (21.0-32.0); CREATININE 0.5 mg/dL (0.55-1.02); Calcium 8.6 mg/dL (8.5-10.1); Calculated LDL 62 mg/dL (<100); Chloride 106 mmol/L (98-107); Cholesterol 192 mg/dL (<200); Glucose 77 mg/dL (74-106); HDL Cholesterol 97 mg/dL (40-60); Sodium 144 mmol/L (136-145); TSH (W/Ref FT4) 2.12 uIU/mL (0.36-3.74); Triglyceride 168 mg/dL (<150)
[2021-05-26 09:55] LABS: Hepatitis B Surface Ag Negative (Negative)
[2021-05-26 10:28] LABS: Hepatitis C Ab w Rflx HCV PCR Negative (Negative)
[2021-05-26 10:32] LABS: HIV-1/2 Ag & Ab Screen Negative (Negative)
== END 2021-05-25 01:43 | disposition home or self-care (01) ==
LOC: LBO 01:43
PROVIDERS: PCP Family Medicine; Visit Provider Family Medicine
DX: E03.9 Hypothyroidism, unspecified (principal); E78.5 Hyperlipidemia, unspecified; I10 Essential (primary) hypertension; Z11.59 Encounter for screening for other viral diseases; K21.9 Gastro-esophageal reflux disease without esophagitis; Z11.4 Encounter for screening for human immunodeficiency virus [HIV]
CPT/HCPCS: 36415; 80053; 80061; 85027; 86803; 87340; 87389; 84443

== ENCOUNTER 2021-07-25 20:05 | Outpatient (REF) | payer MEDICARE, SELFPAY ==
[2021-07-26 15:20] LABS: COVID-19 RT-PCR UVMMC Result Positive (Negative)
== END 2021-07-25 20:06 | disposition home or self-care (01) ==
LOC: LBN 20:05
PROVIDERS: PCP Family Medicine; Visit Provider Family Medicine
DX: R09.81 Nasal congestion (principal); Z20.822 Contact with and (suspected) exposure to COVID-19
CPT/HCPCS: U0003

== ENCOUNTER → 2021-11-21 02:39 | Outpatient (CLI) | payer MEDICARE, SELFPAY ==
--- NOTE | 2021-11-21 12:15 | DI.MAMMO_ITS ---
Exam(s) MAMMO SCREENING EXAM: MAMMO SCREENING CLINICAL HISTORY: screening TECHNIQUE: Bilateral full field digital CC and MLO mammographic images were obtained with 3D tomosyn thesis and utilizing computer aided detection (CAD). COMPARISON: Available for comparison. FINDINGS: Masses/Architectural Distortion: None seen. Microcalcifications: No suspicious pleomorphic-type are seen. Stable calcifications in the left breas t. Skin Thickening/Nipple Retraction: None. IMPRESSION: 1. No significant interval change with no specific features of malignancy noted. 2. Unless there is more urgent need, screening mammography is recommended, as per [employer] guidelines. BI-RADS Category 2 - Benign Findings Breast Density - Category B - Scattered areas of fibroglandular density Breast density category C or D implies that the patient has dense breast tissue. Dense breast tissue is very common and is not abnormal but dense breast tissue can make it harder to find cancer on a ma mmogram. Also, dense breast tissue may increase their breast cancer risk. This information about the result of the mammogram report was provided to the patient to raise their awareness. Use this report when you speak with the patient about their risks for breast cancer, which includes their family hist ory. At that time, you may recommend for more screening tests (Ultrasound or MRI) as they might be us eful based on their risk. A negative radiographic report should not delay biopsy if a dominant or clinically suspicious mass is present. Up to ten percent of cancers are not identified on mammography. A negative report may reinforce clinical impression. Adenosis and dense breasts may obscure an underlying neoplasm. False positive reports average 6 to 10%. Patient will receive a letter notifying them of these results.
== END ==
PROVIDERS: PCP Family Medicine; Visit Provider Nurse Practitioner Family
DX: Z12.31 Encounter for screening mammogram for malignant neoplasm of breast (principal)
CPT/HCPCS: 77063; 77067

== ENCOUNTER 2022-06-20 02:33 | Outpatient (CLI) | payer MEDICARE, SELFPAY ==
[2022-06-20 13:13] LABS: Abs Immature Grans 0.01 10^3/uL (0.0-0.06); Absolute Basophil Count 0.05 10^3/uL (0.0-0.2); Absolute Eosinophil Count 0.35 10^3/uL (0.0-0.7); Absolute Lymphocyte Count 1.19 10^3/uL (1.2-3.4); Absolute Monocyte Count 0.45 10^3/uL (0.1-0.8); Basophils % 1.1; HCT 46.4 % (36.0-46.0); HGB 15.2 g/dL (11.2-15.7); Immature Grans % 0.2; Lymphocytes % 27.3; MCH 32.7 pg (27.0-33.0); MCHC 32.8 % (32.0-36.0); MCV 100 fL (80-95); MPV 9.9 fL (8.0-11.0); Monocytes % 10.3; Neutrophils % 53.1; Platelet Count 145 10^3/uL (130-400); RBC 4.65 10^6/uL (3.93-5.22); RDW 13.2 % (11.7-14.6); RDW-SD 48.4 fL; WBC 4.36 10^3/uL (4.4-10.8)
[2022-06-20 13:21] LABS: Absolute Neutrophil Count 2.32 10^3/uL (1.2-6.7)
[2022-06-20 13:31] LABS: ALT 52 U/L (14-59); AST 41 U/L (15-37); Albumin 3.9 g/dL (3.4-5.0); Alkaline Phosphatase 84 U/L (46-116); Anion Gap 8.4 mmol/L (3-11); BUN 6 mg/dL (7-18); Bilirubin, Total 0.5 mg/dL (0.2-1.0); CO2 29.6 mmol/L (21.0-32.0); CREATININE 0.7 mg/dL (0.55-1.02); Calcium 9.1 mg/dL (8.5-10.1); Calculated LDL 69 mg/dL (<100); Chloride 107 mmol/L (98-107); Cholesterol 186 mg/dL (<200); Estimated GFR 94.15 (mL/min/1.73m2); Glucose 92 mg/dL (74-106); HDL Cholesterol 74 mg/dL (40-60); Potassium 3.8 mmol/L (3.5-5.1); Sodium 145 mmol/L (136-145); TSH (W/Ref FT4) 3.66 uIU/mL (0.36-3.74); Total Protein 7.4 g/dL (6.4-8.2); Triglyceride 218 mg/dL (<150)
== END 2022-06-20 02:34 | disposition home or self-care (01) ==
PROVIDERS: PCP Family Medicine; Visit Provider Family Medicine
DX: E03.9 Hypothyroidism, unspecified (principal); E78.5 Hyperlipidemia, unspecified; R79.89 Other specified abnormal findings of blood chemistry
CPT/HCPCS: 36415; 80053; 80061; 84443; 85025

== ENCOUNTER 2022-06-29 11:53 | Outpatient (CLI) | payer MEDICARE, SELFPAY ==
--- NOTE | 2022-06-29 11:30 | DI.RAD_ITS ---
Exam(s) XR KNEE LT 4V AP,LAT,JEAN PAUL,PAT EXAM: XR KNEE LT 4V AP,LAT,JEAN PAUL,PAT CLINICAL HISTORY: s/p left tka; left knee pain. TECHNIQUE: 2D digital imaging was performed. Three views. COMPARISON: No exams were available for comparison FINDINGS: BONES: No acute fracture is present. No bony destructive lesion is seen. JOINTS: A total knee prosthesis is noted. The knee is normally aligned. No joint effusion is seen. SOFT TISSUE: Normal. IMPRESSION: Unremarkable knee prosthesis. DATA REPOSITORY: RADIATION DOSE DELIVERED:
== END 2022-06-29 11:54 | disposition home or self-care (01) ==
LOC: DIORS 11:53
PROVIDERS: PCP Family Medicine; Referring Provider Family Medicine; Visit Provider Student in an Organized Health Care Education/Training Program
DX: M70.52 Other bursitis of knee, left knee (principal); T84.84XA Pain due to internal orthopedic prosthetic devices, implants and grafts, initial encounter; Z96.652 Presence of left artificial knee joint
CPT/HCPCS: 20610; 99213; 73564; J1030

== ENCOUNTER 2022-07-06 03:17 | Outpatient (CLI) | payer MEDICARE, SELFPAY ==
[2022-07-06 11:47] LABS: ESR 4 mm/hr (0-30)
[2022-07-06 12:31] LABS: C-Reactive Protein 0.28 mg/dL (0.0-0.3)
== END 2022-07-06 03:18 | disposition home or self-care (01) ==
LOC: LBO 03:18
PROVIDERS: PCP Family Medicine; Visit Provider Student in an Organized Health Care Education/Training Program
DX: M25.562 Pain in left knee (principal); T84.84XA Pain due to internal orthopedic prosthetic devices, implants and grafts, initial encounter; Z96.652 Presence of left artificial knee joint
CPT/HCPCS: 36415; 85652; 86140

== ENCOUNTER → 2022-08-11 11:11 | Outpatient (BNVA) | payer MEDICARE, SELFPAY | PROVIDERS: PCP Family Medicine; Referring Provider Family Medicine; Visit Provider Student in an Organized Health Care Education/Training Program | DX: M70.52 Other bursitis of knee, left knee (principal) | CPT/HCPCS: 99213 ==

== ENCOUNTER → 2022-11-28 01:03 | Outpatient (CLI) | payer MEDICARE, SELFPAY ==
--- NOTE | 2022-11-28 08:15 | DI.MAMMO_ITS ---
Exam(s) MAMMO SCREENING EXAM: MAMMO SCREENING CLINICAL HISTORY: screening, Z12.39 TECHNIQUE: Bilateral full field digital CC and MLO mammographic images were obtained with 3D tomosyn thesis and utilizing computer aided detection (CAD). COMPARISON: Available for comparison. FINDINGS: Masses/Architectural Distortion: None seen. Microcalcifications: No suspicious pleomorphic-type are seen. Skin Thickening/Nipple Retraction: None. IMPRESSION: 1. No significant interval change with no specific features of malignancy noted. 2. Unless there is more urgent need, screening mammography is recommended, as per [employer] guidelines. BI-RADS Category 1 - Negative Breast Density - Category B - Scattered areas of fibroglandular density Breast density category C or D implies that the patient has dense breast tissue. Dense breast tissue is very common and is not abnormal but dense breast tissue can make it harder to find cancer on a ma mmogram. Also, dense breast tissue may increase their breast cancer risk. This information about the result of the mammogram report was provided to the patient to raise their awareness. Use this report when you speak with the patient about their risks for breast cancer, which includes their family hist ory. At that time, you may recommend for more screening tests (Ultrasound or MRI) as they might be us eful based on their risk. A negative radiographic report should not delay biopsy if a dominant or clinically suspicious mass is present. Up to ten percent of cancers are not identified on mammography. A negative report may reinforce clinical impression. Adenosis and dense breasts may obscure an underlying neoplasm. False positive reports average 6 to 10%. Patient will receive a letter notifying them of these results.
== END ==
PROVIDERS: PCP Family Medicine; Visit Provider Family Medicine
DX: Z12.31 Encounter for screening mammogram for malignant neoplasm of breast (principal)
CPT/HCPCS: 77063; 77067

== ENCOUNTER 2022-12-20 04:05 | Outpatient (CLI) | payer MEDICARE, SELFPAY ==
[2022-12-20 12:54] LABS: Abs Immature Grans 0.08 10^3/uL (0.0-0.06); Absolute Basophil Count 0.03 10^3/uL (0.0-0.2); Absolute Eosinophil Count 0.02 10^3/uL (0.0-0.7); Absolute Lymphocyte Count 1.64 10^3/uL (1.2-3.4); Absolute Monocyte Count 0.79 10^3/uL (0.1-0.8); Basophils % 0.3; Eosinophils % 0.2; HCT 48.8 % (36.0-46.0); HGB 16.3 g/dL (11.2-15.7); Immature Grans % 0.7; Lymphocytes % 14.9; MCH 32.7 pg (27.0-33.0); MCHC 33.4 % (32.0-36.0); MCV 98 fL (80-95); MPV 9.3 fL (8.0-11.0); Monocytes % 7.2; Neutrophils % 76.7; Platelet Count 214 10^3/uL (130-400); RBC 4.99 10^6/uL (3.93-5.22); RDW 12.6 % (11.7-14.6); RDW-SD 45.5 fL; WBC 11.03 10^3/uL (4.4-10.8)
[2022-12-20 12:57] LABS: Absolute Neutrophil Count 8.46 10^3/uL (1.2-6.7)
[2022-12-20 13:55] LABS: ALT 58 U/L (14-59); AST 28 U/L (15-37); Alkaline Phosphatase 80 U/L (46-116); BUN 13 mg/dL (7-18); Bilirubin, Total 0.7 mg/dL (0.2-1.0); CREATININE 0.8 mg/dL (0.55-1.02); Calcium 9.9 mg/dL (8.5-10.1); Chloride 101 mmol/L (98-107); Estimated GFR 80.21 (mL/min/1.73m2); Glucose 156 mg/dL (74-106); Potassium 3.6 mmol/L (3.5-5.1); Sodium 139 mmol/L (136-145); TSH (W/Ref FT4) 0.65 uIU/mL (0.36-3.74); Total Protein 7.9 g/dL (6.4-8.2); Vitamin B12 155 pg/mL (193-986)
== END 2022-12-20 04:06 | disposition home or self-care (01) ==
LOC: LBO 04:05
PROVIDERS: PCP Family Medicine; Visit Provider Nurse Practitioner Family
DX: R21 Rash and other nonspecific skin eruption (principal)
CPT/HCPCS: 36415; 80053; 82607; 84443; 85025

== ENCOUNTER 2023-01-07 09:16 | Emergency (ER) | payer MEDICARE, SELFPAY ==
--- NOTE | 2023-01-07 09:15 | DI.RAD_ITS ---
Exam(s) XR KNEE RT 3V AP,LAT,JEAN PAUL EXAM: XR KNEE RT 3V AP,LAT,JEAN PAUL CLINICAL HISTORY: swelling and pain. TECHNIQUE: 2D digital imaging was performed of the right knee. Three views obtained. AP, lateral an d PA tunnel views were obtained. COMPARISON: CR XR KNEE LT 4V AP,LAT,JEAN PAUL,PAT from 06/29/2022 FINDINGS: BONES: No acute fracture is present. No bony destructive lesion is seen. JOINTS: The knee is normally aligned. Degenerative changes are seen in the knee characterized by join t space narrowing and osteophytes. There is a moderate joint effusion. There is chondrocalcinosis i n the femoral tibial joint. SOFT TISSUE: Normal. IMPRESSION: 1. Degenerative changes in the knee. 2. No acute fracture or dislocation. DATA REPOSITORY: RADIATION DOSE DELIVERED:
[2023-01-07 09:17] VITALS: BP 166/95; PULSE 97; RESP 18; TEMP 36.4; O2SAT 97
--- NOTE | 2023-01-07 09:40 | ED.GENADUL_ITS ---
Discharge Plan Disposition Patient Disposition: Home Discharge Details Clinical Impression: Effusion of knee joint right, Arthritis Primary Care Provider: Kathy Rodriguez ED Provider: Júnior Mcdermott Home Meds and New Rx's Prescriptions: Continued budesonide 32 mcg/actuation spray,non-aerosol 2 spray NS PRN paroxetine HCl 20 mg tablet 20 mg PO DAILY Qty: 90 3RF levothyroxine 75 mcg tablet 75 mcg PO DAILY Qty: 90 3RF estradiol [Estrace] 0.01 % (0.1 mg/gram) cream 1 g VG AD PRN (Reason: atrophic vaginitis) Qty: 42.5 4RF Rx Instructions: Insert 1G in the vagina at night 2 x per week as needed atorvastatin 20 mg tablet 20 mg PO DAILY Qty: 90 3RF atenolol 25 mg tablet 25 mg PO DAILY Qty: 90 3RF cyclobenzaprine 5 mg tablet 5 mg PO BID PRN (Reason: muscle spasm) Qty: 10 0RF alendronate 70 mg tablet 70 mg PO QWEEK Qty: 13 3RF mecobalamin (vitamin B12) 500 mcg tablet,chewable 500 mcg PO DAILY methylprednisolone 4 mg tablets,dose pack 4 mg PO DAILY Qty: 21 0RF omeprazole 20 mg capsule,delayed release(DR/EC) 20 mg PO DAILY Qty: 90 3RF Discharge Instructions Instructions: Swollen Knee Joint (ED) Additional Instructions: It is recommended that you take 400 mg of ibuprofen along with 325mg of acetaminophen every 4-6 hours as needed for pain. While awake please use Sajan wrap to help with swelling and discomfort but you may remove this for sleeping as needed. Also apply ice and keep leg elevated with rest over the next couple days. We have placed you on the orthopedic follow-up list and please contact their office tomorrow for arrangement of your follow-up appointment. In the meantime given that we did not perform drainage or testing of the knee fluid if you develop any significant new or worsening symptoms including fever chills, persistent redness, or other concerns return to the emergency department for rediscussion of draining and testing of the knee fluid. If your pending lab comes back significantly elevated we will contact you for further discussion of care. Referrals: [facility] [Provider Group] Medical Decision Making Patient presenting to the emergency department for chief complaint of right knee swelling and pain. She states without any precipitating event yesterday she started noticed significant swelling and pain to her right knee. She denies any fever chills, injury or trauma, or systemic symptoms. She does state that she did have septic arthritis many years ago that felt similar to this incident. Physical exam shows anxious appearing female in moderate amount of pain with any movement of the right lower extremity. Patient is able to flex and extend lower extremity with noted pain. There is moderate to significant swelling of the right knee with diffuse swelling noted. No erythema is noted, no appreciated warmth is noted from right knee to left knee, and exam is otherwise noncontr ibutory. We will plan on checking patient's labs and x-ray. Given patient's history I have a threshold to perform arthrocentesis but will perform imaging and labs first and give main pain medication. Reviewed patient's labs and she has slight leukopenia which has been noted in the past, also platelets are slightly low at 117. CMP is noncontributory. CRP slightly elevated at 1.10 ESR still pending and is a send out due to lab equipment. Should have results later in the day. X-ray was reviewed and did show a suprapatellar patellar effusion and significant degeneration of the joint. Discussed findings with patient and at this time pending ESR lower suspicion of this being septic arthritis given that she has no fever, only slightly elevated CRP, and no leukocytosis on CBC. Did you shared decision making and discussion of arthrocentesis mainly for diagnostic purposes but also for some alleviation of discomfort. After full discussion of risk versus benefit patient and significant other decided to hold off on the procedure and monitor symptoms with low threshold to return for any new or worsening symptoms. We will place patient on orthopedic list for follow-up and will recommend Sajan bandage use to help with swelling and discomfort. After discussion of diagnosis and plan of care patient has no further needs, questions, or concerns and states clear understanding to return to the emergency department for any worsening symptoms. This documentation was generated using [employer] system, please disregard any oddities of phrase or misspellings. Imaging Data Radiologic Study: Imaging: X-Ray Radiologist's impression: Exam(s) PROCEDURE INFORMATION: Exam: XR Right Knee Exam date and time: 01/07/2023 10:01 AM Age: 67 years old Clinical indication: Pain; Knee; Right TECHNIQUE: Imaging protocol: Radiologic exam of the right knee. Views: 3 views. COMPARISON: No relevant prior studies available. FINDINGS: Bones/joints: Tricompartmental joint space narrowing and osteophyte formation consistent with degenerative changes. There is no evidence of acute fracture.There is no evidence of malalignment or dislocation. Mild suprapatellar joint effusion Soft tissues: Normal. IMPRESSION: 1. Tricompartmental joint space narrowing and osteophyte formation consistent with degenerative changes. 2. There is no evidence of acute fracture.There is no evidence of malalignment or dislocation. HPI General Mode of arrival: ambulatory . Date/Time Provider Initiated Documentation: 01/07/23 09:18 . Limitations to Documentation: no limitations . Information obtained by: patient and RN notes reviewed . History of Present Illness 67 year old F presents to the emergency department with the chief complaint of Right knee pain and swelling, described as moderate, Quality is described as aching, and is localized to the right and lower extremity. Patient reports no radiation. Patient started experiencing this day(s) (1) and it has been constant. No relieving factors improve symptom(s), No exacerbating factors reported . Patient notes no other symptoms.. Related Data Home Medications Medication Instructions Recorded Confirmed budesonide 32 mcg/actuation nasal 2 spray NS PRN 11/08/18 01/07/23 spray omeprazole 20 mg capsule,delayed 20 mg PO DAILY #90 caps 04/17/22 01/07/23 release alendronate 70 mg tablet 70 mg PO QWEEK #13 tabs 04/28/22 01/07/23 atenolol 25 mg tablet 25 mg PO DAILY #90 tab-caps 04/28/22 01/07/23 atorvastatin 20 mg tablet 20 mg PO DAILY #90 tabs 04/28/22 01/07/23 cyclobenzaprine 5 mg tablet 5 mg PO BID PRN muscle spasm #10 04/28/22 01/07/23 tabs estradiol 0.01% (0.1 mg/gram) 1 g vaginal AD PRN atrophic 04/28/22 01/07/23 vaginal cream (Estrace) vaginitis #42.5 grams levothyroxine 75 mcg tablet 75 mcg PO DAILY #90 tab-caps 04/28/22 01/07/23 paroxetine HCl 20 mg tablet 20 mg PO DAILY #90 tab-caps 04/28/22 01/07/23 mecobalamin (vitamin B12) 500 mcg 500 mcg PO DAILY 10/27/22 01/07/23 chewable tablet methylprednisolone 4 mg tablets in 4 mg PO DAILY rash #21 dose pk 12/15/22 01/07/23 a dose pack Previous Rx's Medication Instructions Recorded omeprazole 20 mg capsule,delayed 20 mg PO DAILY #90 caps 04/17/22 release alendronate 70 mg tablet 70 mg PO QWEEK #13 tabs 04/28/22 atenolol 25 mg tablet 25 mg PO DAILY #90 tab-caps 04/28/22 atorvastatin 20 mg tablet 20 mg PO DAILY #90 tabs 04/28/22 cyclobenzaprine 5 mg tablet 5 mg PO BID PRN muscle spasm #10 04/28/22 tabs estradiol 0.01% (0.1 mg/gram) 1 g vaginal AD PRN atrophic 04/28/22 vaginal cream (Estrace) vaginitis #42.5 grams levothyroxine 75 mcg tablet 75 mcg PO DAILY #90 tab-caps 04/28/22 paroxetine HCl 20 mg tablet 20 mg PO DAILY #90 tab-caps 04/28/22 methylprednisolone 4 mg tablets in 4 mg PO DAILY rash #21 dose pk 12/15/22 a dose pack Allergies Allergy/AdvReac Type Severity Reaction Status Date / Time trazodone AdvReac Unknown Flushing, Verified 12/15/22 16:28 sweaty General Stated Complaint: Orthopedic MIGUEL: 4 Review of Systems Constitutional Constitutional: Denies chills, Denies fatigue, Denies fever(s), Denies headache(s) and Denies malaise ENT Ears, Nose, Mouth, and Throat: Denies headache(s) Cardiovascular Cardiovascular: Denies chest pain and Denies dyspnea Respiratory Respiratory: Denies dyspnea Gastrointestinal Gastrointestinal: Denies abdominal pain Musculoskeletal Musculoskeletal: Reports as per HPI, Reports arthralgias, Reports joint swelling and Reports limited range of motion Integumentary/Breasts Skin/Breast: Denies erythema and Denies rash Neurologic Neurologic: Denies headache(s) Endocrine Endocrine: Denies fatigue PFSH All Active Problems (Updated 01/07/23 @ 11:22 by Júnior Mcdermott NP) Depressive disorder (Chronic) managed with paroxetine x years; tried to go off in 2022, restarted. Essential hypertension (Acute) Hyperlipidemia (Acute) Tubular adenoma of colon (Acute) 2019, also family history of father with colon cancer-due for colonoscopy 2022 Hypothyroid (Chronic) GERD (gastroesophageal reflux disease) (Chronic) Osteoporosis (Chronic) 05/2021-positive DEXA scan Elevated liver function tests (Acute) 05/2021-mildly elevated transaminases, Fib4-3.9, likely associate with alcohol use, possible fatty liver syndrome 06/22 2.67 - improving Alcohol abuse (Chronic) 08/2021-4 glasses of wine per day; 09/2022 2-3 glasses Polycythemia (Acute) Effusion of knee joint right (Acute) Arthritis (Acute) Medical History Alcohol use disorder Atrophic vaginitis COVID-19 (~05/17/22) Pes anserinus bursitis of left knee 40 mg Depo-medrol injection: 06/29/22 Surgical History History of bunionectomy of both great toes (~2004) S/P colonoscopy (09/22/19) 2016- hyperplastic polyp S/P left knee arthroscopy (~2010) S/P right knee arthroscopy Status post left foot surgery (~01/2017) For plantar fasciitis Status post total left knee replacement Family History Mother , at 93 of CHF Heart disease Breast cancer Hypertension Father , at 57 of colon cancer Colon cancer Dx at 56 Pancreatic cancer Sister Breast cancer Brother , of [place] at 69 Heart disease Myocardial infarction Daughter No problems noted. Maternal Grandfather No problems noted. Maternal Grandmother No problems noted. Paternal Grandfather No problems noted. Paternal Grandmother No problems noted. 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 Pets and animals: Yes Pets and animals: dog(s) Do you think of yourself as: straight/heterosexual Current gender identity: female What is your relationship status?: How often do you talk on the phone with friends or family?: three or more times per week Panel score (0-1 are the most socially isolated patients): 2 Duration: 30-45 minutes/day Lissett/Buddhist: Mu-Ism Seatbelt use: always Drive intox or ride w/intox form setter/driver: No Do you feel safe at home: Yes Do you feel safe in your relationship?: Yes Victim of physical abuse: No Victim of emotional abuse: No Victim of sexual abuse: No Additional Social history: Enjoys watching [employer] Female Reproductive History Menstrual Menopause type: natural History History 1 Para 1 Hx # Term Pregnancies Multiple births Hx # Pregnancies Ectopic pregnancies AB induced Hx Number of Living Children 1 AB spontaneous Exam Const General: cooperative, no acute distress, anxious and not ill appearing Orientation: alert, awake and oriented x3 HENMT Mouth: moist mucous membranes Resp Effort & Inspection: normal respiratory effort, able to speak in complete sentences and no respiratory distress Cardio Rate: regular rate Rhythm: regular rhythm Skin General skin exam: no rashes or lesions noted Neuro General: patient alert, patient awake, patient oriented x3, moves all extremities and no focal motor deficits Sensory Exam: no sensory deficits noted Extrem Right lower extremity: knee Details: abnormal to inspection Details: not erythematous, tenderness, swelling (difuse) and abnormal ROM Details: pain with active ROM during Details: in extension, pain with passive ROM during Details: in extension and in flexion and with range as follows (full); no crepitus and no unusual warmth Course Vital Signs Vital signs: Vital Signs Temperature 36.4 C L 01/07/23 09:17 Pulse 97 H 01/07/23 09:17 Respiratory Rate 18 01/07/23 09:17 Blood Pressure 166/95 H 01/07/23 09:17 Pulse Oximetry 97 01/07/23 09:17 Temperature 36.4 C L 01/07/23 09:17 Temperature Source Skin 01/07/23 09:17 Pulse 97 H 01/07/23 09:17 Respiratory Rate 18 01/07/23 09:17 Respiratory Effort Normal 01/07/23 09:22 Blood Pressure 166/95 H 01/07/23 09:17 Blood Pressure Position Sitting 01/07/23 09:17 Pulse Oximetry 97 01/07/23 09:17 Oxygen Delivery Method Room Air 01/07/23 09:17 Oxygen Flow Rate 0 01/07/23 09:17 Pain Level 7 01/07/23 09:17 Lab/Test Results Lab/Test Results: 01/07/23 09:29 Blood Blood Culture - Pending 01/07/23 09:29 Blood Blood Culture - Pending
[2023-01-07 09:52] LABS: Abs Immature Grans 0.01 10^3/uL (0.0-0.06); Absolute Basophil Count 0.02 10^3/uL (0.0-0.2); Absolute Eosinophil Count 0.17 10^3/uL (0.0-0.7); Absolute Lymphocyte Count 0.77 10^3/uL (1.2-3.4); Absolute Monocyte Count 0.37 10^3/uL (0.1-0.8); Absolute Neutrophil Count 2.74 10^3/uL (1.2-6.7); Basophils % 0.5; Eosinophils % 4.2; HCT 42.9 % (36.0-46.0); HGB 14.4 g/dL (11.2-15.7); Immature Grans % 0.2; Lymphocytes % 18.9; MCH 32.3 pg (27.0-33.0); MCHC 33.6 % (32.0-36.0); MCV 96 fL (80-95); Monocytes % 9.1; Neutrophils % 67.1; Platelet Count 117 10^3/uL (130-400); RBC 4.46 10^6/uL (3.93-5.22); RDW 12.4 % (11.7-14.6); RDW-SD 43.9 fL; WBC 4.08 10^3/uL (4.4-10.8)
[2023-01-07] MEDS: Ketorolac 15 MG/ML VIAL IVP (09:53)
--- NOTE | 2023-01-07 10:05 | DI.VRAD_ITS ---
PROCEDURE INFORMATION: Exam: XR Right Knee Exam date and time: 01/07/2023 10:01 AM Age: 67 years old Clinical indication: Pain; Knee; Right TECHNIQUE: Imaging protocol: Radiologic exam of the right knee. Views: 3 views. COMPARISON: No relevant prior studies available. FINDINGS: Bones/joints: Tricompartmental joint space narrowing and osteophyte formation consistent with degenerative changes. There is no evidence of acute fracture.There is no evidence of malalignment or dislocation. Mild suprapatellar joint effusion Soft tissues: Normal. IMPRESSION: 1. Tricompartmental joint space narrowing and osteophyte formation consistent with degenerative changes. 2. There is no evidence of acute fracture.There is no evidence of malalignment or dislocation. Dictated and Authenticated by: Jerod Barnhart MD. Ordering:ART Callejas MD
[2023-01-07 10:07] LABS: ALT 33 U/L (14-59); AST 27 U/L (15-37); Albumin 3.5 g/dL (3.4-5.0); Alkaline Phosphatase 71 U/L (46-116); Anion Gap 9.2 mmol/L (3-11); BUN 5 mg/dL (7-18); Bilirubin, Total 0.5 mg/dL (0.2-1.0); CO2 25.8 mmol/L (21.0-32.0); CREATININE 0.6 mg/dL (0.55-1.02); Calcium 9.2 mg/dL (8.5-10.1); Chloride 104 mmol/L (98-107); Estimated GFR 97.71 (mL/min/1.73m2); Glucose 125 mg/dL (74-106); Potassium 3.7 mmol/L (3.5-5.1); Sodium 139 mmol/L (136-145); Total Protein 7.1 g/dL (6.4-8.2)
[2023-01-07 12:03] LABS: ESR (LRH) 14 mm/hr
== END 2023-01-07 11:34 | disposition home or self-care (01) ==
PROVIDERS: Emergency Provider Nurse Practitioner Family; PCP Family Medicine
DX: M25.461 Effusion, right knee (principal); M19.90 Unspecified osteoarthritis, unspecified site
CPT/HCPCS: 36415; 73562; 80053; 85652; 87040; 96374; 96375; 99284; 85025; 86140; J0131; J1885

== ENCOUNTER → 2023-01-15 09:22 | Outpatient (BNVA) | payer MEDICARE, SELFPAY | PROVIDERS: PCP Family Medicine; Referring Provider Family Medicine; Visit Provider Student in an Organized Health Care Education/Training Program | DX: M25.461 Effusion, right knee (principal); M17.11 Unilateral primary osteoarthritis, right knee | CPT/HCPCS: 20610; J1040 ==

== ENCOUNTER → 2023-02-08 14:09 | Outpatient (BNVA) | payer MEDICARE, SELFPAY | PROVIDERS: PCP Family Medicine; Referring Provider Family Medicine; Visit Provider Physical Therapy Assistant | DX: Z12.11 Encounter for screening for malignant neoplasm of colon (principal); Z86.010 Personal history of colon polyps; Z80.0 Family history of malignant neoplasm of digestive organs ==

== ENCOUNTER 2023-03-08 06:07 | Day surgery (SDC) | payer MEDICARE, SELFPAY ==
--- NOTE | 2023-03-07 20:37 | W.PM.DSUDISC ---
Date of service: 03/08/23 Time of Service: 07:59 Discharge Plan Disposition Patient Disposition: Home Condition: Good Discharge Details Reason For Visit: screening colonoscopy Attending Provider: Alexander Alanis Primary Care Provider: Kathy Rodriguez Home Meds and New Rx's Prescriptions: Continued budesonide 32 mcg/actuation spray,non-aerosol 2 spray NS PRN paroxetine HCl 20 mg tablet 20 mg PO DAILY Qty: 90 3RF levothyroxine 75 mcg tablet 75 mcg PO DAILY Qty: 90 3RF estradiol [Estrace] 0.01 % (0.1 mg/gram) cream 1 g VG AD PRN (Reason: atrophic vaginitis) Qty: 42.5 4RF Rx Instructions: Insert 1G in the vagina at night 2 x per week as needed atorvastatin 20 mg tablet 20 mg PO DAILY Qty: 90 3RF atenolol 25 mg tablet 25 mg PO DAILY Qty: 90 3RF cyclobenzaprine 5 mg tablet 5 mg PO BID PRN (Reason: muscle spasm) Qty: 10 0RF alendronate 70 mg tablet 70 mg PO QWEEK Qty: 13 3RF mecobalamin (vitamin B12) 500 mcg tablet,chewable 500 mcg PO DAILY omeprazole 20 mg capsule,delayed release(DR/EC) 20 mg PO DAILY Qty: 90 3RF celecoxib [Celebrex] 200 mg capsule 200 mg PO BID Qty: 60 1RF Rx Instructions: take 1 tablet by mouth twice daily Discontinued bisacodyl [Dulcolax (bisacodyl)] 5 mg tablet,delayed release (DR/EC) 5 mg PO ONCE Qty: 4 0RF Rx Instructions: Take per colonoscopy instructions provided by ordering providers office polyethylene glycol 3350 17 gram/dose powder 17 g PO ONCE Qty: 238 0RF Rx Instructions: Take per colonoscopy instructions provided by ordering providers office Discharge Instructions Instructions: Colorectal Polyps (GEN) Additional Instructions: Hedy, we were able to complete your colonoscopy today without any difficulty. I did find 2 small polyps. I removed these completely. Once I have the results of the polyp report, I will be in touch with my recommendations for your next colonoscopy. If you have any questions in the meantime, please do not hesitate to call at any point 1. If tolerated, consume a soft, low fiber diet for 1-2 days. 2[address] Do not drive, drink alcohol, operate machinery, make critical decisions, or do activities that require coordination or balance for 24 hours. 3. Because air was put into your colon during the procedure, expelling air from your rectum (passing gas or farting) is normal. 4. You may not have a bowel movement for 1-3 days because of the colonoscopy prep. This is normal. 5. Go directly to the emergency room if you notice any of the following: Develop chills (warm to touch), or if you have a thermometer and your temperature is above 101 Difficulty breathing or difficultly swallowing Persistent vomiting Severe abdominal pain, other than gas cramps Severe chest pain Black, tarry stools Any bleeding ? exceeding one tablespoon 6. Call your physician if the site where your intravenous was started becomes red, swollen, painful, and warm to touch. 7. Your physician has reviewed your pre-procedure medications. Please continue to take those medications as previously ordered. You will be given specific information/education regarding any changes to your medications before leaving. Activity:: Activity as Tolerated Diet:: As Tolerated Discharge Orders Discharge Orders: Discharge Order (Routine); Ordered 03/07/23 Ordered By: Alexander Alanis DS: Diagnosis Discharge Diagnosis (1) Screen for colon cancer: Status: Acute Asessment and Plan: I will follow-up on polypectomy results
--- NOTE | 2023-03-07 20:39 | W.COLOREPORT ---
Date of service: 03/08/23 Time of Service: 08:00 Colonoscopy Report Date of procedure: 03/08/23 Pre-op diagnosis general: screening colonoscopy Post-op diagnosis procedure note: other (Colorectal polyps) Procedure: Colonoscopy with polypectomy Surgeon: Alexander Alanis Anesthesia Type: General:No Airway Estimated blood loss (mL): 5 Pathology: other (0.25 cm polyp at 25 cm, 0.25 cm polyp at 15 cm) Complications: None Disposition: same day Indications: Hedy is a 67 year old woman who has a history of tubular adenomas. She is here for her next screening colonoscopy Prep: Miralax/Dulcolax Procedure Start Time: 07:32 Procedure End Time: 07:48 Retraction Time: 11 Findings: 0.25 cm polyp at 25 cm, 0.25 cm polyp at 15 cm Procedure Description: After the induction of monitored anesthetic care, and with the patient in left lateral decubitus position, I began by performing an external anorectal exam.? Perineum and skin were normal, as was the anal verge.? There was no evidence of external hemorrhoids.? Next, I performed a digital rectal exam.? I did not appreciate any abnormal findings.? Next, I advanced a colonoscope into the rectal vault.? I performed retroflexion.? There were grade 1 internal hemorrhoids.? Using insufflation, I then advanced the colonoscope beyond the rectal folds and into the sigmoid colon before advancing towards the cecum.? The scope was noted to be in the cecum by identification of the ileocecal valve and appendiceal orifice.? I then began withdrawing the colonoscope using repeated irrigation as necessary for full evaluation of the colonic mucosa. Around 25 cm from the anal verge I identified a 0.25 cm polyp. ?It appeared flat in character. ?I was able to remove this with a cold forcep polypectomy. ?I examined the site, and there was minimal bleeding. ?Once this was completed, I continued to withdraw the scope and examine the remainder of the colonic mucosa.? Similarly, around 15 cm from the anal verge was another 0.25 cm polyp. This was also flat, and also removed with cold forceps. Once the scope was withdrawn to the level of the rectum, great care was taken to examine portions of the rectal folds.? Finally, the scope was withdrawn and the patient was brought to the same-day surgery recovery unit as the anesthetic wore off. ?The findings and instructions were shared with the patient prior to discharge. Galloway Bowel Prep Galloway Bowel Prep Right Colon: 2 Left Colon: 2 Transverse Colon: 3 Total Score: 7
[2023-03-08 06:30] VITALS: BP 135/95; PULSE 82; RESP 16; TEMP 36.6; O2SAT 97
[2023-03-08] MEDS: Lactated Ringers 1,000 ML 80 ML IV (06:45)
--- NOTE | 2023-03-08 07:02 | W.ANESPRE ---
General Info Date of Service Date Performed: 03/08/23 Height: 5 ft 3 in Weight: 75.5 kg Body Mass Index (BMI): 29.5 Surgical Procedure: Operation Date: 03/08/23 07:35 Proposed Procedure Side Surgeon josh Alanis MD Meds Allergies and Home Medications Allergies Allergy/AdvReac Type Severity Reaction Status Date / Time trazodone AdvReac Unknown Flushing, Verified 03/08/23 06:29 sweaty Home Medication Medication Instructions Recorded budesonide 32 mcg/actuation nasal 2 spray NS PRN 11/08/18 spray omeprazole 20 mg capsule,delayed 20 mg PO DAILY #90 caps 04/17/22 release alendronate 70 mg tablet 70 mg PO QWEEK #13 tabs 04/28/22 atenolol 25 mg tablet 25 mg PO DAILY #90 tab-caps 04/28/22 atorvastatin 20 mg tablet 20 mg PO DAILY #90 tabs 04/28/22 cyclobenzaprine 5 mg tablet 5 mg PO BID PRN muscle spasm #10 04/28/22 tabs estradiol 0.01% (0.1 mg/gram) 1 g vaginal AD PRN atrophic 04/28/22 vaginal cream (Estrace) vaginitis #42.5 grams levothyroxine 75 mcg tablet 75 mcg PO DAILY #90 tab-caps 04/28/22 paroxetine HCl 20 mg tablet 20 mg PO DAILY #90 tab-caps 04/28/22 mecobalamin (vitamin B12) 500 mcg 500 mcg PO DAILY 10/27/22 chewable tablet celecoxib 200 mg capsule (Celebrex) 200 mg PO BID #60 caps 01/31/23 Current Visit Medications: Current Medications Generic Name Dose Route Start Last Admin Trade Name Freq PRN Reason Stop Dose Admin Hyoscyamine Sulfate 0.125 mg 03/07/23 20:40 Hyoscyamine 0.125 Mg Sl/Oral/Chew SL 04/06/23 20:39 DIRECTED PRN Ringer's Solution 1,000 mls @ 80 mls/hr 03/08/23 06:00 03/08/23 06:45 IV 04/06/23 23:59 80 mls/hr INFUSION PAT Administration IV Miscellaneous Supplies 1 each 03/08/23 06:00 Iv Access IV 04/06/23 23:59 DIRECTED PAT Ondansetron HCl 4 mg 03/07/23 20:40 Ondansetron 4 Mg/2 Ml Vial IVP 04/06/23 20:39 Q4H PRN PRN Nausea / Vomiting Sodium Chloride 0 ml 03/08/23 06:00 Normal Saline Flush 10 Ml Syr IV 04/06/23 23:59 PRN PRN Sodium Chloride 0 ml 03/08/23 06:00 Normal Saline 10 Ml Vial IJ 04/06/23 23:59 DIRECTED PRN Sterile Water 0 ml 03/08/23 06:00 Water,Injection,Sterile 10 Ml Vial IJ 04/06/23 23:59 DIRECTED PRN PFSH Active Problems Active Problems: Problem Status Onset Code Screen for colon cancer Z12.11 Osteoarthritis of right knee M17.11 Polycythemia D75.1 Alcohol abuse F10.10 Elevated liver function tests R79.89 Osteoporosis M81.0 GERD (gastroesophageal reflux disease) K21.9 Hypothyroid E03.9 Tubular adenoma of colon D12.6 Hyperlipidemia E78.5 Essential hypertension I10 Depressive disorder F32.9 Medical History Medical History Alcohol use disorder Atrophic vaginitis COVID-19 (~05/17/22) Pes anserinus bursitis of left knee 40 mg Depo-medrol injection: 06/29/22 Surgical History Surgical History History of bunionectomy of both great toes (~2004) S/P colonoscopy (09/22/19) 2016- hyperplastic polyp S/P left knee arthroscopy (~2010) S/P right knee arthroscopy Status post left foot surgery (~01/2017) For plantar fasciitis Status post total left knee replacement Tobacco Smoking/Tobacco Use Status: Never Passive smoking exposure: Yes Second hand exposure: No Alcohol Alcohol Intake: current Alcohol intake frequency: 3 or more drinks per day Alcohol type: wine Substance Use Substance use type: does not use Prental History History 1 Para 1 Hx # Term Pregnancies Multiple births Hx # Pregnancies Ectopic pregnancies AB induced Hx Number of Living Children 1 AB spontaneous Vital Signs and Lab Results Vital Signs Most Recent Vital Signs in EMR: Most Recent Vital Signs Temp Pulse Resp BP Pulse Ox 36.6 C 82 16 135/95 H 97 03/08/23 06:30 03/08/23 06:30 03/08/23 06:30 03/08/23 06:30 03/08/23 06:30 Lab Results Blood Type / Crossmatch: No Data to Display Complete Blood Count: No Data to Display Complete Metabolic Panel: No Data to Display Liver Function Panel: No Data to Display Coagulation Panel: No Data to Display Cardiac Panel: No Data to Display Arterial Blood Gas: No Data to Display Venous Blood Gas: No Data to Display Pancreas Panel: No Data to Display Thyroid Panel: No Data to Display Infectious Disease: No Data to Display Blood Cultures: No Data to Display Toxicology Panel: No Data to Display Anesthesia Assessment and Plan Anesthesia History Personal History: No History of Anesthesia Complications Family History: No Family History of Anesthesia Complications Exercise Tolerance Exercise Tolerance: Metabolic Equivalents>4 Pertinent Negatives Pertinent Negatives: No Symptoms of GERD Cardiac & Pulmonary Exam Cardiac Exam: Normal S1/S2 Heart Sounds Pulmonary Exam: Clear Bilateral Breath Sounds Implantable Cardiac Device Does patient have a Pacemaker or an ICD?: No Airway Exam Known Difficult Airway: No Mallampati Class: 3 Mouth Opening: Normal (> 3cm) Thyromental Distance: Greater than 3 cm Neck Range of Motion: Full ROM Neck Circumference: Normal Teeth Condition: Normal Dentition ASA Classification ASA Score: ASA 2 Emergency Case?: No NPO Status NPO Status: NPO Clears >2 hours, Solids >8 hours Anesthesia Plan Resuscitation Status: Full Code Anesthesia Technique: General Anesthesia Airway Planned: Natural Airway Monitors Used: Standard Monitors
[2023-03-08 07:06] VITALS: BMI 29.5
--- NOTE | 2023-03-08 07:46 | BOWEL_PTH ---
PATIENT: Hedy Peterson LOC: [facility] U#:[id number] AGE/SX: 67/F ROOM: RE03/08/[address]: Alexander Alanis MD : [id number] BED: DIS: 03/08/2023 SPEC #: [id number] RECD: 03/08/23 12:39 STATUS: EMEKA REQ #: [id number] CHALINO: 03/08/23 07:[address]: Alexander Alanis DEPT: Surgical Specimen RECD BY: Jazmin Schmitz ENTERED: 03/08/23 12:40 SP TYPE: Bowel OTHR DR: Kathy Rodriguez Tissues: 1 - BIOPSY BOWEL 2 - BIOPSY BOWEL Procedures: GROSS AND MICRO LEVEL 4 Comments: [id number]
[2023-03-08 07:56] VITALS: BP 110/74; PULSE 81; RESP 18; TEMP 36; O2SAT 96
--- NOTE | 2023-03-08 08:06 | W.ANESPOSTOP ---
Postoperative Evaluation Date, Time and Location Date Performed: 03/15/23 Time Performed: 08:07 Patient Location: Day Surgery Unit Vital Signs Most Recent Imported Vital Signs: Most Recent Vital Signs Temp Pulse Resp BP Pulse Ox 36 C L 81 18 110/74 96 03/08/23 07:56 03/08/23 07:56 03/08/23 07:56 03/08/23 07:56 03/08/23 07:56 Pain Score Most Recent Pain Score: Most Recent Pain Score Pain Level 3 03/08/23 06:30 Assessment Mental Status: Awake (Alert & Oriented to Patient Baseline) Airway and Respiratory Function: Patent airway with normal (patient baseline) respiratory exam Cardiovascular Function: Hemodynamically Stable Hydration Status: Adequately Hydrated Nausea & Vomiting: No Nausea or Vomiting Pain: Pt. Denies Any Pain Peripheral Nerve Block: Patient did not receive a nerve block
[2023-03-08 08:29] VITALS: BP 132/75; PULSE 74; RESP 18; TEMP 36.8; O2SAT 96
== END 2023-03-08 09:12 | disposition home or self-care (01) ==
LOC: SUR 06:08
PROVIDERS: PCP Family Medicine; Visit Provider Surgery
PROC: 0DJD8ZZ Inspection of Lower Intestinal Tract, Via Natural or Artificial Opening Endoscopic (ICD-10-PCS; CPT 45378; principal; 2023-03-08 07:30)
DX: Z12.11 Encounter for screening for malignant neoplasm of colon (principal); K63.5 Polyp of colon; K64.0 First degree hemorrhoids; Z86.010 Personal history of colon polyps; F10.10 Alcohol abuse, uncomplicated; I10 Essential (primary) hypertension; K63.89 Other specified diseases of intestine
CPT/HCPCS: 45380; 88305

== ENCOUNTER → 2023-05-17 02:49 | Outpatient (CLI) | payer MEDICARE, SELFPAY ==
--- NOTE | 2023-05-17 07:15 | DI.RAD_ITS ---
Exam(s) XR LUMBAR SPINE COMPLETE EXAM: XR LUMBAR SPINE COMPLETE CLINICAL HISTORY: scoliosis,M41.9. TECHNIQUE: 2D digital imaging was performed. Five views. COMPARISON: MR MRI LUMBAR WO from 08/30/2017 CR XR DEXA BONE DENSITY W/WO JOVANNA from 05/10/2021 FINDINGS: BONES: Stable mild T12 compression fracture. Mild L4 compression fracture. This appears new since 2 022 slight compression of the L5 vertebral body, superior endplate. Facet degenerative changes at L4 -5 and L5-S1. DISKS: Intervertebral disc spaces are maintained. ALIGNMENT: Slight scoliosis. Mild spondylolisthesis at L4-5. SOFT TISSUE: Normal. IMPRESSION: Stable mild T12 compression fracture from 2021. Mild compression fractures of L4 and L5 are new sinc e 2021. DATA REPOSITORY: RADIATION DOSE DELIVERED:
--- NOTE | 2023-05-17 07:15 | DI.RAD_ITS ---
Exam(s) XR THORACIC SPINE COMPLETE EXAM: XR THORACIC SPINE COMPLETE CLINICAL HISTORY: scoliosis,M41.9. TECHNIQUE: 2D digital imaging was performed. Three views. COMPARISON: MR MRI LUMBAR WO from 08/30/2017 CR XR DEXA BONE DENSITY W/WO JOVANNA from 05/10/2021 CR XR LUMBAR SPINE COMPLETE from 05/17/2023 FINDINGS: BONES: Stable mild T12 compression fracture. ALIGNMENT: Within normal limits. DISKS: Interverebral disc spaces are maintained. Small endplate osteophytes. SOFT TISSUE: Visualized lungs are clear. Moderate-sized hiatal hernia IMPRESSION: Stable mild T12 compression fracture. DATA REPOSITORY: RADIATION DOSE DELIVERED:
== END ==
PROVIDERS: PCP Family Medicine; Visit Provider Family Medicine
DX: S22.080A Wedge compression fracture of T11-T12 vertebra, initial encounter for closed fracture (principal); X58.XXXA Exposure to other specified factors, initial encounter
CPT/HCPCS: 72072; 72110

== ENCOUNTER 2023-06-05 04:20 | Outpatient (CLI) | payer MEDICARE, SELFPAY ==
[2023-06-05 10:41] LABS: Abs Immature Grans 0.01 10^3/uL (0.0-0.06); Absolute Basophil Count 0.03 10^3/uL (0.0-0.2); Absolute Eosinophil Count 0.55 10^3/uL (0.0-0.7); Absolute Monocyte Count 0.52 10^3/uL (0.1-0.8); Absolute Neutrophil Count 3.17 10^3/uL (1.2-6.7); Basophils % 0.5; HCT 47.3 % (36.0-46.0); HGB 15.8 g/dL (11.2-15.7); Immature Grans % 0.2; Lymphocytes % 21.9; MCH 31.7 pg (27.0-33.0); MCHC 33.4 % (32.0-36.0); MCV 95 fL (80-95); MPV 9.9 fL (8.0-11.0); Monocytes % 9.5; Neutrophils % 57.9; Platelet Count 171 10^3/uL (130-400); RBC 4.98 10^6/uL (3.93-5.22); RDW 12.9 % (11.7-14.6); RDW-SD 44.5 fL; WBC 5.48 10^3/uL (4.4-10.8)
[2023-06-05 11:15] LABS: ALT 57 U/L (14-59); AST 49 U/L (15-37); Albumin 3.5 g/dL (3.4-5.0); Alkaline Phosphatase 66 U/L (46-116); Anion Gap 9.7 mmol/L (3-11); BUN 3 mg/dL (7-18); Bilirubin, Total 0.7 mg/dL (0.2-1.0); CO2 28.3 mmol/L (21.0-32.0); CREATININE 0.6 mg/dL (0.55-1.02); Calcium 9.3 mg/dL (8.5-10.1); Chloride 104 mmol/L (98-107); Estimated GFR 97.71 (mL/min/1.73m2); Glucose 93 mg/dL (74-106); Sodium 142 mmol/L (136-145); Vitamin B12 463 pg/mL (193-986)
[2023-06-06 17:39] LABS: PHOSPHORUS 3.9 mg/dL (2.6-4.7)
[2023-06-06 18:11] LABS: Vitamin D 25 Total 13.2 ng/mL (30-100)
== END 2023-06-05 04:21 | disposition home or self-care (01) ==
PROVIDERS: PCP Family Medicine; Visit Provider Family Medicine
DX: E53.8 Deficiency of other specified B group vitamins (principal); D75.1 Secondary polycythemia; Z00.00 Encounter for general adult medical examination without abnormal findings; R79.89 Other specified abnormal findings of blood chemistry; M81.0 Age-related osteoporosis without current pathological fracture
CPT/HCPCS: 36415; 80053; 82306; 82607; 84100; 85025

== ENCOUNTER 2023-06-13 03:56 | Outpatient (CLI) | payer MEDICARE, SELFPAY ==
[2023-06-13 15:15] LABS: PHOSPHORUS 3.6 mg/dL (2.6-4.7)
[2023-06-13 15:18] LABS: Creatinine,Urine 92.08 mg/dL
[2023-06-13 15:46] LABS: Vitamin D 25 Total 15.2 ng/mL (30-100)
[2023-06-14 09:32] LABS: Calcium (Random Urine) <1.0 mg/dL (See Note)
[2023-06-14 18:40] LABS: Erythropoietin 4.7 mIU/mL (2.6 - 18.5)
== END 2023-06-13 03:57 | disposition home or self-care (01) ==
LOC: LBO 03:56
PROVIDERS: PCP Family Medicine; Visit Provider Family Medicine
DX: M81.0 Age-related osteoporosis without current pathological fracture (principal); D75.1 Secondary polycythemia; N18.9 Chronic kidney disease, unspecified
CPT/HCPCS: 36415; 82306; 82668; 82340; 82565; 84100

== ENCOUNTER 2023-07-08 15:02 | Emergency (ER) | payer MEDICARE, SELFPAY ==
[2023-07-08 15:10] VITALS: BP 154/89; PULSE 89; RESP 16; TEMP 37.4; O2SAT 95
--- NOTE | 2023-07-08 15:30 | DI.RAD_ITS ---
Exam(s) XR ANKLE RT COMPLETE EXAM: XR ANKLE RT COMPLETE CLINICAL HISTORY: pain. TECHNIQUE: 2D digital imaging was performed. COMPARISON: No exams were available for comparison FINDINGS: 3 views There is soft tissue swelling over the lateral aspect the ankle but no fractures nor widening of the ankle mortise. There is, however, an abnormal lucency in the medial aspect of the talar dome consistent with probabl e osteochondral defect. This measures approximately 6 millimeters wide. Moderate size inferior calc aneal spur noted. No osseous tarsal coalition. Two screws are noted in the great toe metatarsal mos t probably related to prior osteotomy site. IMPRESSION: Osteochondral defect in the medial talar dome. DATA REPOSITORY: RADIATION DOSE DELIVERED:
--- NOTE | 2023-07-08 15:30 | DI.RAD_ITS ---
Exam(s) XR FOOT RT COMPLETE EXAM: XR FOOT RT COMPLETE CLINICAL HISTORY: pain. TECHNIQUE: 2D digital imaging was performed. COMPARISON: No exams were available for comparison FINDINGS: 3 views No evidence of acute fracture nor diastasis of the Lisfranc joint although there does appear to be si gnificant degenerative change at the 2nd tarsometatarsal joint. There has been shaving of the medial head of the great toe metatarsal and healed osteotomy site at the great toe metatarsal neck with 2 s crews at this level. There is inferior calcaneal spur moderate size may evident. Some calcification is noted in the distal most Achilles tendon. IMPRESSION: As above. See ankle report which reveals osteochondral defect in the talar dome medial aspect DATA REPOSITORY: RADIATION DOSE DELIVERED:
--- NOTE | 2023-07-08 15:56 | ED.GENADUL_ITS ---
Discharge Plan Disposition Patient Disposition: Home Discharge Details Clinical Impression: Acute right ankle pain Primary Care Provider: Kathy Rodriguez ED Provider: Júnior Mcdermott Home Meds and New Rx's Prescriptions: Continued budesonide 32 mcg/actuation spray,non-aerosol 2 spray NS PRN cyclobenzaprine 5 mg tablet 5 mg PO BID PRN (Reason: muscle spasm) Qty: 30 0RF mecobalamin (vitamin B12) 500 mcg tablet,chewable 500 mcg PO DAILY estradiol [Estrace] 0.01 % (0.1 mg/gram) cream 1 g VG AD PRN (Reason: atrophic vaginitis) Qty: 42.5 4RF Rx Instructions: Insert 1G in the vagina at night 2 x per week as needed atenolol 25 mg tablet 25 mg PO DAILY Qty: 90 3RF alendronate 70 mg tablet 70 mg PO QWEEK Qty: 13 3RF atorvastatin 20 mg tablet 20 mg PO DAILY Qty: 90 3RF levothyroxine 75 mcg tablet 75 mcg PO DAILY Qty: 90 3RF paroxetine HCl 20 mg tablet 20 mg PO DAILY Qty: 90 3RF celecoxib [Celebrex] 200 mg capsule 200 mg PO BID Qty: 60 1RF Hold Instructions: While on steroids Rx Instructions: take 1 tablet by mouth twice daily omeprazole 20 mg capsule,delayed release(DR/EC) 20 mg PO DAILY Qty: 90 3RF ergocalciferol (vitamin D2) 1,250 mcg (50,000 unit) capsule 1,250 mcg PO .COMPLEX 120 Days Qty: 20 0RF Rx Instructions: 1,250 mcg orally Twice weekly for 1 month then once weekly for 3 months; Discharge Instructions Instructions: Swollen Ankle Joint (ED) Additional Instructions: Please continue to monitor symptoms and return immediately to the emergency department for new or worsening of your condition. Please take [id number] acetaminophen not to exceed 3000 mg in a 24-hour. Along with your normal medications including your Celebrex to help with discomfort. Please follow-up with your primary care provider in the next 1 to 2 weeks for reassessment Referrals: Kathy Rodriguez MD [Primary Care Provider] - 1 week HPI General Mode of arrival: ambulatory . Date/Time Provider Initiated Documentation: 07/08/23 15:56 . Limitations to Documentation: no limitations . Information obtained by: patient and RN notes reviewed . History of Present Illness 68 year old F presents to the emergency department with the chief complaint of Right foot and ankle pain, described as moderate and severe, Quality is described as aching, and is localized to the right and lower extremity. Patient started experiencing this day(s) (1) and it has been constant. No relieving factors improve symptom(s), No exacerbating factors reported . Patient notes no other symptoms.. Patient did receive the following treatments prior to arrival, none Related Data Home Medications Medication Instructions Recorded Confirmed budesonide 32 mcg/actuation nasal 2 spray NS PRN 11/08/18 07/08/23 spray mecobalamin (vitamin B12) 500 mcg 500 mcg PO DAILY 10/27/22 07/08/23 chewable tablet celecoxib 200 mg capsule (Celebrex) 200 mg PO BID #60 caps 01/31/23 07/08/23 omeprazole 20 mg capsule,delayed 20 mg PO DAILY #90 caps 04/11/23 07/08/23 release alendronate 70 mg tablet 70 mg PO QWEEK #13 tabs 05/15/23 07/08/23 atenolol 25 mg tablet 25 mg PO DAILY #90 tab-caps 05/15/23 07/08/23 atorvastatin 20 mg tablet 20 mg PO DAILY #90 tabs 05/15/23 07/08/23 estradiol 0.01% (0.1 mg/gram) 1 g vaginal AD PRN atrophic 05/15/23 07/08/23 vaginal cream (Estrace) vaginitis #42.5 grams levothyroxine 75 mcg tablet 75 mcg PO DAILY #90 tab-caps 05/15/23 07/08/23 paroxetine HCl 20 mg tablet 20 mg PO DAILY #90 tab-caps 05/15/23 07/08/23 cyclobenzaprine 5 mg tablet 5 mg PO BID PRN muscle spasm #30 06/06/23 07/08/23 tabs ergocalciferol (vitamin D2) 1,250 1,250 mcg PO .COMPLEX 4 months #20 06/08/23 07/08/23 mcg (50,000 unit) capsule caps Previous Rx's Medication Instructions Recorded celecoxib 200 mg capsule (Celebrex) 200 mg PO BID #60 caps 01/31/23 omeprazole 20 mg capsule,delayed 20 mg PO DAILY #90 caps 04/11/23 release alendronate 70 mg tablet 70 mg PO QWEEK #13 tabs 05/15/23 atenolol 25 mg tablet 25 mg PO DAILY #90 tab-caps 05/15/23 atorvastatin 20 mg tablet 20 mg PO DAILY #90 tabs 05/15/23 estradiol 0.01% (0.1 mg/gram) 1 g vaginal AD PRN atrophic 05/15/23 vaginal cream (Estrace) vaginitis #42.5 grams levothyroxine 75 mcg tablet 75 mcg PO DAILY #90 tab-caps 05/15/23 paroxetine HCl 20 mg tablet 20 mg PO DAILY #90 tab-caps 05/15/23 cyclobenzaprine 5 mg tablet 5 mg PO BID PRN muscle spasm #30 06/06/23 tabs ergocalciferol (vitamin D2) 1,250 1,250 mcg PO .COMPLEX 4 months #20 06/08/23 mcg (50,000 unit) capsule caps Allergies Allergy/AdvReac Type Severity Reaction Status Date / Time trazodone AdvReac Unknown Flushing, Verified 07/08/23 15:12 sweaty General Stated Complaint: Orthopedic MIGUEL: 4 Review of Systems Musculoskeletal Musculoskeletal: Reports as per HPI, Reports arthralgias, Reports joint swelling, Reports limited range of motion, Denies numbness and Denies tingling Integumentary/Breasts Skin/Breast: Denies unusual bruising Neurologic Neurologic: Denies numbness and Denies tingling Exam Const General: cooperative, no acute distress and not ill appearing Orientation: alert, awake and oriented x3 HENMT Mouth: moist mucous membranes Resp Effort & Inspection: normal respiratory effort, able to speak in complete sentences and no respiratory distress Cardio Rate: regular rate Rhythm: regular rhythm Pulses: normal peripheral pulses Skin General skin exam: no rashes or lesions noted Neuro General: patient alert, patient awake, patient oriented x3, moves all extremities and no focal motor deficits Sensory Exam: no sensory deficits noted Extrem Right lower extremity: lower leg Details: normal to inspection; no tenderness, ankle Details: tenderness Location: of the lateral malleolus and of the medial malleolus, swelling and abnormal ROM Details: pain with active ROM; no abrasions, no lacerations and no ecchymosis and foot Details: vascular exam Details: dorsalis pedis pulse present, posterior tibial pulse present and normal capillary refill and motor-sensory exam Details: light-touch normal; no tenderness Course Vital Signs Vital signs: Vital Signs Temperature 37.4 C 07/08/23 15:10 Pulse 89 07/08/23 15:10 Respiratory Rate 16 07/08/23 15:10 Blood Pressure 154/89 H 07/08/23 15:10 Pulse Oximetry 95 07/08/23 15:10 Temperature 37.4 C 07/08/23 15:10 Temperature Source Skin 07/08/23 15:10 Pulse 89 07/08/23 15:10 Respiratory Rate 16 07/08/23 15:10 Respiratory Effort Normal, Non-Labored 07/08/23 15:12 Blood Pressure 154/89 H 07/08/23 15:10 Blood Pressure Position Sitting 07/08/23 15:10 Pulse Oximetry 95 07/08/23 15:10 Oxygen Delivery Method Room Air 07/08/23 15:10 Oxygen Flow Rate 0 07/08/23 15:10 Pain Level 9 07/08/23 15:10 Medical Decision Making Patient presenting to the emergency department for chief complaint right ankle pain. Patient reports that yesterday after being in the car for a while she had some right ankle stiffness. Then when she got out of the concert and walk on it there was significant pain and discomfort. Patient denies any known trauma or injury, denies any other systemic symptoms. Physical exam shows diffuse soft tissue tenderness on the medial aspect and both soft tissue and bony tenderness to the lateral aspect. Exam is otherwise unremarkable, CMS intact distal to pain. Suspect occult injury versus inflammatory condition. Will perform radiological imaging Review of radiological imaging and radiologist interpretation shows medial talar dome defect but otherwise degenerative changes noted with no acute fracture or dislocation seen. This area does not specifically correlate with patient's area of discomfort as most of her pain is lateral about a talar dome defect could be sign of occult injury. Will place patient in walking boot and have weightbearing as tolerated and have patient take her Celebrex for discomfort. After discussion of diagnosis and plan of care patient has no further needs, questions, or concerns and states clear understanding to return to the emergency department for any worsening symptoms. This documentation was generated using [employer] system, please disregard any oddities of phrase or misspellings. Imaging Data Radiologic Study: Imaging: X-Ray Radiologist's impression: Exam(s) XR ANKLE RT COMPLETE EXAM: XR ANKLE RT COMPLETE CLINICAL HISTORY: pain. TECHNIQUE: 2D digital imaging was performed. COMPARISON: No exams were available for comparison FINDINGS: 3 views There is soft tissue swelling over the lateral aspect the ankle but no fractures nor widening of the ankle mortise. There is, however, an abnormal lucency in the medial aspect of the talar dome consistent with probable osteochondral defect. This measures approximately 6 millimeters wide. Moderate size inferior calcaneal spur noted. No osseous tarsal coalition. Two screws are noted in the great toe metatarsal most probably related to prior osteotomy site. IMPRESSION: Osteochondral defect in the medial talar dome. Radiologic Study #2: Imaging: X-Ray Radiologist's impression: Exam(s) XR FOOT RT COMPLETE EXAM: XR FOOT RT COMPLETE CLINICAL HISTORY: pain. TECHNIQUE: 2D digital imaging was performed. COMPARISON: No exams were available for comparison FINDINGS: 3 views No evidence of acute fracture nor diastasis of the Lisfranc joint although there does appear to be significant degenerative change at the 2nd tarsometatarsal joint. There has been shaving of the medial head of the great toe metatarsal and healed osteotomy site at the great toe metatarsal neck with 2 screws at this level. There is inferior calcaneal spur moderate size may evident. Some calcification is noted in the distal most Achilles tendon. IMPRESSION: As above. See ankle report which reveals osteochondral defect in the talar dome medial aspect Quality:SDOH Health Related Social Needs: Health related social needs risk of homeless PFSH All Active Problems (Updated 07/08/23 @ 16:59 by Júnior Mcdermott NP) Acute right ankle pain (Acute) Vitamin D deficient osteomalacia (Acute) Scoliosis deformity of spine (Acute) Chronic low back pain without sciatica (Acute) Dry eye syndrome of both eyes (Acute) Hyperplastic colon polyp (Acute ~03/08/23) Osteoarthritis of right knee (Acute) Steroid injection: 01/15/2023 Polycythemia (Acute) Alcohol abuse (Chronic) 08/2021-4 glasses of wine per day; 09/2022 2-3 glasses Elevated liver function tests (Acute) 05/2021-mildly elevated transaminases, Fib4-3.9, likely associate with alcohol use, possible fatty liver syndrome 06/22 2.67 - improving Osteoporosis (Chronic) 05/2021-positive DEXA scan GERD (gastroesophageal reflux disease) (Chronic) Hypothyroid (Chronic) Tubular adenoma of colon (Acute) 2019, also family history of father with colon cancer-due for colonoscopy 2022 Hyperlipidemia (Acute) Essential hypertension (Acute) Depressive disorder (Chronic) managed with paroxetine x years; tried to go off in 2022, restarted. Medical History Pes anserinus bursitis of left knee 40 mg Depo-medrol injection: 06/29/22 Alcohol use disorder Atrophic vaginitis Surgical History History of colonoscopy with polypectomy (~03/08/23) Status post total left knee replacement S/P right knee arthroscopy Status post left foot surgery (~01/2017) For plantar fasciitis S/P colonoscopy (03/2023) path sent History of bunionectomy of both great toes (~2004) S/P left knee arthroscopy (~2010) Family History Mother , at 93 of CHF Heart disease Breast cancer Hypertension Father , at 57 of colon cancer Colon cancer Dx at 56 Pancreatic cancer Sister Breast cancer Brother , of [place] at 69 Heart disease Myocardial infarction Daughter No problems noted. Maternal Grandfather No problems noted. Maternal Grandmother No problems noted. Paternal Grandfather No problems noted. Paternal Grandmother No problems noted. 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 Pets and animals: Yes Pets and animals: dog(s) Do you think of yourself as: straight/heterosexual Current gender identity: female What is your relationship status?: How often do you talk on the phone with friends or family?: three or more times per week Panel score (0-1 are the most socially isolated patients): 2 Duration: 30-45 minutes/day Lissett/Confucianist: Alevism Seatbelt use: always Drive intox or ride w/intox meals on wheels driver: No Do you feel safe at home: Yes Do you feel safe in your relationship?: Yes Victim of physical abuse: No Victim of emotional abuse: No Victim of sexual abuse: No Female Reproductive History Menstrual Menopause type: natural History History 1 Para 1 Hx # Term Pregnancies Multiple births Hx # Pregnancies Ectopic pregnancies AB induced Hx Number of Living Children 1 AB spontaneous
[2023-07-08] MEDS: Acetaminophen 500 MG TAB 1000 MG PO (16:26)
--- NOTE | 2023-07-08 17:11 | DI.VRAD_ITS ---
PROCEDURE INFORMATION: Exam: XR Right Ankle Exam date and time: 07/08/2023 4:12 PM Age: 68 years old Clinical indication: Other: Pain, no known injury TECHNIQUE: Imaging protocol: Radiologic exam of the right ankle. Views: 3 or more views. Total images: 6 COMPARISON: CR XR FOOT RT COMPLETE 07/08/2023 4:11 PM FINDINGS: Bones/joints: 7 x 8 mm osteochondral lesion medial talar dome. Ankle mortise is anatomic. No fracture. Soft tissues: Lateral soft tissue swelling. Achilles insertion and plantar fascial heel spurs. IMPRESSION: Talar dome osteochondral lesion. Dictated and Authenticated by: Gokul Agustin MD. Ordering:ART Callejas MD
--- NOTE | 2023-07-08 17:16 | DI.VRAD_ITS ---
PROCEDURE INFORMATION: Exam: XR Right Foot Exam date and time: 07/08/2023 4:11 PM Age: 68 years old Clinical indication: Other: Pain, no known injury TECHNIQUE: Imaging protocol: Radiologic exam of the right foot. Views: 3 or more views. Total images: 3 COMPARISON: CR XR KNEE RT 3V AP,LAT,JEAN PAUL 01/07/2023 10:01 AM FINDINGS: Bones/joints: Metallic screws from prior bunion surgery. Flattening of the 2nd metatarsal head. No fracture. Osteoarthritis 2nd MTP joint including periarticular cysts and metatarsal head osteophyte. Chronic appearing widening to the 2nd digit proximal phalangeal base. Soft tissues: Plantar fascial and Achilles insertion heel spurs. IMPRESSION: Second MTP joint osteoarthritis. Metatarsal head AVN/Freiberg's disease not excluded. Dictated and Authenticated by: Gokul Agustin MD. Ordering:ART Callejas MD
== END 2023-07-08 17:31 | disposition home or self-care (01) ==
PROVIDERS: Emergency Provider Nurse Practitioner Family; PCP Family Medicine
DX: M25.571 Pain in right ankle and joints of right foot (principal); I10 Essential (primary) hypertension; E78.5 Hyperlipidemia, unspecified
CPT/HCPCS: 99283; 73610; 73630

== ENCOUNTER 2023-11-30 01:35 | Outpatient (CLI) | payer MEDICARE, SELFPAY ==
[2023-11-30 13:02] LABS: Ferritin 316 ng/mL (8-252); Vitamin D 25 Total 34.4 ng/mL (30-100)
== END 2023-11-30 01:36 | disposition home or self-care (01) ==
PROVIDERS: PCP Family Medicine; Visit Provider Family Medicine
DX: D75.1 Secondary polycythemia; M83.9 Adult osteomalacia, unspecified
CPT/HCPCS: 36415; 82306; 82728; 84466

== ENCOUNTER 2023-12-06 03:34 | Outpatient (CLI) | payer MEDICARE, SELFPAY ==
[2023-12-07 09:43] LABS: Transferrin 201 mg/dL (201-352)
[2023-12-07 17:12] LABS: Vitamin D 25 Total 39.3 ng/mL (30-100)
== END 2023-12-06 03:35 | disposition home or self-care (01) ==
LOC: LOS 03:34
PROVIDERS: PCP Family Medicine; Visit Provider Family Medicine
DX: R79.89 Other specified abnormal findings of blood chemistry (principal); D75.1 Secondary polycythemia; M83.9 Adult osteomalacia, unspecified
CPT/HCPCS: 36415; 82306; 84466

== ENCOUNTER 2023-12-13 03:48 | Outpatient (CLI) | payer MEDICARE, SELFPAY ==
[2023-12-13 12:45] LABS: Iron 92 ug/dL (50-170); Total Iron Binding Capacity 256 ug/dL (250-450); Transferrin Sat 36 % (15-50)
== END 2023-12-13 03:49 | disposition home or self-care (01) ==
LOC: LOS 03:48
PROVIDERS: PCP Family Medicine; Visit Provider Family Medicine
DX: D75.1 Secondary polycythemia (principal)
CPT/HCPCS: 36415; 83540; 83550

== ENCOUNTER 2024-06-10 00:58 | Outpatient (CLI) | payer MEDICARE, SELFPAY ==
--- NOTE | 2024-06-10 07:15 | DI.MAMMO_ITS ---
Exam(s) MAMMO SCREENING EXAM: MAMMO SCREENING CLINICAL HISTORY: screening,Z12.39 TECHNIQUE: Bilateral full field digital CC and MLO mammographic images were obtained with 3D tomosyn thesis and utilizing computer aided detection (CAD). COMPARISON: Available for comparison. FINDINGS: Masses/Architectural Distortion: None seen. Microcalcifications: No suspicious pleomorphic-type are seen. Skin Thickening/Nipple Retraction: None. IMPRESSION: 1. No significant interval change with no specific features of malignancy noted. 2. Unless there is more urgent need, screening mammography is recommended, as per [employer] guidelines. BI-RADS Category 1 - Negative Breast Density - Category B - Scattered areas of fibroglandular density Breast density category C or D implies that the patient has dense breast tissue. Dense breast tissue is very common and is not abnormal but dense breast tissue can make it harder to find cancer on a ma mmogram. Also, dense breast tissue may increase their breast cancer risk. This information about the result of the mammogram report was provided to the patient to raise their awareness. Use this report when you speak with the patient about their risks for breast cancer, which includes their family hist ory. At that time, you may recommend for more screening tests (Ultrasound or MRI) as they might be us eful based on their risk. A negative radiographic report should not delay biopsy if a dominant or clinically suspicious mass is present. Up to ten percent of cancers are not identified on mammography. A negative report may reinforce clinical impression. Adenosis and dense breasts may obscure an underlying neoplasm. False positive reports average 6 to 10%. Patient will receive a letter notifying them of these results.
== END 2024-06-10 01:18 ==
LOC: DI 00:58
PROVIDERS: PCP Family Medicine; Visit Provider Family Medicine
DX: Z12.31 Encounter for screening mammogram for malignant neoplasm of breast (principal); D75.1 Secondary polycythemia; F10.10 Alcohol abuse, uncomplicated; R92.323 Mammographic fibroglandular density, bilateral breasts
CPT/HCPCS: 77063; 77067

== ENCOUNTER 2024-06-24 02:55 | Outpatient (CLI) | payer MEDICARE, SELFPAY ==
[2024-06-24 12:42] LABS: Abs Immature Grans 0.02 10^3/uL (0.0-0.06); Absolute Basophil Count 0.05 10^3/uL (0.0-0.2); Absolute Lymphocyte Count 0.93 10^3/uL (1.2-3.4); Absolute Monocyte Count 0.53 10^3/uL (0.1-0.8); Absolute Neutrophil Count 3.33 10^3/uL (1.2-6.7); Eosinophils % 5.8 %; HCT 47.4 % (36.0-46.0); HGB 15.5 g/dL (11.2-15.7); Immature Grans % 0.4 %; MCH 32.8 pg (27.0-33.0); MCHC 32.7 % (32.0-36.0); MCV 100 fL (80-95); MPV 10.1 fL (8.0-11.0); Monocytes % 10.3 %; Neutrophils % 64.5 %; Platelet Count 166 10^3/uL (130-400); RBC 4.72 10^6/uL (3.93-5.22); RDW 12.9 % (11.7-14.6); RDW-SD 48.3 fL; WBC 5.16 10^3/uL (4.4-10.8)
[2024-06-24 13:21] LABS: ALT 50 U/L (14-59); AST 39 U/L (15-37); Albumin 3.7 g/dL (3.4-5.0); Alkaline Phosphatase 72 U/L (46-116); Anion Gap 7.8 mmol/L (3-11); BUN 5 mg/dL (7-18); Bilirubin, Total 0.6 mg/dL (0.2-1.0); CO2 28.2 mmol/L (21.0-32.0); CREATININE 0.7 mg/dL (0.55-1.02); Calcium 9.7 mg/dL (8.5-10.1); Chloride 108 mmol/L (98-107); Estimated GFR 92.98 (mL/min/1.73m2); Ferritin 303 ng/mL (8-252); Glucose 88 mg/dL (74-106); Potassium 3.8 mmol/L (3.5-5.1); Sodium 144 mmol/L (136-145); TSH (W/Ref FT4) 3.45 uIU/mL (0.36-3.74); Total Protein 7.5 g/dL (6.4-8.2)
[2024-06-26 13:44] LABS: Erythropoietin 8.8 mIU/mL (2.6 - 18.5)
== END 2024-06-24 02:56 | disposition home or self-care (01) ==
LOC: LOS 02:55
PROVIDERS: PCP Family Medicine; Visit Provider Family Medicine
DX: R79.89 Other specified abnormal findings of blood chemistry (principal); D75.1 Secondary polycythemia; F10.10 Alcohol abuse, uncomplicated; E03.9 Hypothyroidism, unspecified; Z00.00 Encounter for general adult medical examination without abnormal findings
CPT/HCPCS: 36415; 80053; 82668; 82728; 84443; 85025

== ENCOUNTER 2024-07-08 02:35 | Outpatient (CLI) | payer MEDICARE, SELFPAY ==
[2024-07-14 18:48] LABS: JAK2 Sequencing Result see interpretation
== END 2024-07-08 02:36 | disposition home or self-care (01) ==
LOC: LBO 02:35
PROVIDERS: PCP Family Medicine; Visit Provider Family Medicine
DX: D75.1 Secondary polycythemia (principal); R79.89 Other specified abnormal findings of blood chemistry
CPT/HCPCS: 0027U; 36415; 81270